=== PATIENT | female | born 1985 | race Caucasian/White ===

== ENCOUNTER 2021-09-14 07:59 | Outpatient (REF) | payer BC, SELFPAY ==
[2021-09-14 11:12] LABS: MANUAL DIFF FLAG NO
[2021-09-14 11:18] LABS: Appearance Urine CLEAR; Color Urine YELLOW; Glucose Urine UA NEG (NEG); Leukocyte Esterase Urine NEG (NEG); Nitrite Urine NEG (NEG); Specific Gravity - Urine 1.025 (1.005-1.025); UACC Culture Trigger NO; Urine Blood TRACE (NEG); Urine Ketones NEG (NEG); Urine Protein NEG (NEG-TRACE)
[2021-09-14 11:19] LABS: Basophils Percent Auto 0.4 % (0-2); Eosinophils Absolute Auto 0.2 X10*3/uL (0.0-0.4); Eosinophils Percent Auto 1.7 % (0-4); Hematocrit 38.6 % (37.0-47.0); Imm Gran Abs Auto 0.03 X10*3/uL (0.00-0.03); Imm Gran Pct Auto 0.3 % (0.0-0.4); Lymphocytes Absolute Auto 2.4 X10*3/uL (1.2-4.9); Lymphocytes Percent Auto 25.5 % (20-40); Mean Corpuscular HGB Conc 31.1 g/dl (31.0-35.0); Mean Corpuscular Hemoglobin 26.3 pg (27.0-33.0); Mean Corpuscular Volume 84.6 fL (80.0-98.0); Mean Platelet Volume 11.5 fL (9.4-12.3); Monocytes Absolute Auto 0.6 X10*3/uL (0.1-1.2); Monocytes Percent Auto 6.8 % (2-11); Neutrophils Absolute Auto 6.1 x10*3/uL (2.0-8.3); Neutrophils Percent Auto 65.3 % (45-73); Platelet Count 266 X10*3/uL (160-400); Red Blood Count 4.56 X10*6/uL (4.20-5.50); White Blood Count 9.4 X10*3/uL (4.8-10.8)
[2021-09-14 11:49] LABS: Bacteria Urine 1+ /LPF; RBC Urine 0-2 /HPF (0); Squamous Epithelial Cell Urine TRACE /LPF; WBC Urine 0 /HPF (0-4)
[2021-09-14 11:50] LABS: Alanine Aminotransferase 14 U/L (0-31); Albumin Level 3.9 g/dL (3.5-5.0); Alkaline Phosphatase 83 U/L (39-117); Anion Gap 12 (12-20); Aspartate Amino Transferase 13 U/L (5-31); Bilirubin Total 0.3 mg/dL (0.0-1.0); Blood Urea Nitrogen 11 mg/dL (9-16); Calcium 8.8 mg/dL (8.4-10.2); Carbon Dioxide 22 mmol/L (22-29); Chloride 106 mmol/L (96-108); Cholesterol 198 mg/dL; Estimated Glomerular Filt Rate > 60; Glucose Fasting 134 mg/dL (60-99); HDL Cholesterol 54 mg/dL; LDL Cholesterol Calculated 116 mg/dl; Sodium 136 mmol/L (135-145); Triglycerides 141 mg/dL
[2021-09-14 11:53] LABS: TSH reflex Free T4 1.21 uIU/mL (0.32-4.0)
== END 2021-09-14 08:00 | disposition home or self-care (01) ==
LOC: HO.HMGCLDS 07:59
PROVIDERS: Visit Provider Nurse Practitioner Family
DX: Z00.00 Encounter for general adult medical examination without abnormal findings (principal)
CPT/HCPCS: 36415; 80053; 80061; 81001; 84443; 85025

== ENCOUNTER 2021-10-02 07:58 | Outpatient (REF) | payer BC, SELFPAY ==
[2021-10-02 11:21] LABS: Urine Cytology See Pathology rpt
[2021-10-02 11:30] LABS: Appearance Urine CLEAR; Color Urine YELLOW; Glucose Urine UA NEG (NEG); Leukocyte Esterase Urine NEG (NEG); Nitrite Urine NEG (NEG); Specific Gravity - Urine 1.025 (1.005-1.025); Urine Blood NEG (NEG); Urine Ketones NEG (NEG); Urine Protein NEG (NEG-TRACE)
[2021-10-02 12:04] LABS: Glucose Fasting 123 mg/dL (60-99)
[2021-10-02 12:06] LABS: Bacteria Urine TRACE /LPF; RBC Urine 0-2 /HPF (0); Squamous Epithelial Cell Urine TRACE /LPF
[2021-10-02 12:07] LABS: WBC Urine 0 /HPF (0-4)
[2021-10-02 12:11] LABS: Estimated Average Glucose 126 mg/dL; Hemoglobin A1C 137.3714 umol/L
== END 2021-10-02 07:59 | disposition home or self-care (01) ==
LOC: HO.HMGCLDS 07:58
PROVIDERS: PCP Nurse Practitioner Family; Visit Provider Nurse Practitioner Family
DX: R73.01 Impaired fasting glucose (principal); R31.29 Other microscopic hematuria
CPT/HCPCS: 36415; 81001; 82947; 83036; 87086; 88112

== ENCOUNTER 2022-08-11 07:52 | Outpatient (REF) | payer BC, OTHER, SELFPAY ==
[2022-08-11 11:23] LABS: MANUAL DIFF FLAG NO
[2022-08-11 11:31] LABS: Appearance Urine Turbid; Color Urine Yellow; Glucose Urine UA Negative (Negative); Leukocyte Esterase Urine Negative (Negative); Nitrite Urine Negative (Negative); PH 5.5 (5.0-9.0); Specific Gravity - Urine 1.025 (1.005-1.025); Urine Blood Negative (Negative); Urine Ketones Negative (Negative); Urine Protein Negative (Neg-Trace)
[2022-08-11 11:36] LABS: Basophils Absolute Auto 0.1 X10*3/uL (0.0-0.2); Basophils Percent Auto 0.9 % (0-2); Eosinophils Absolute Auto 0.4 X10*3/uL (0.0-0.4); Eosinophils Percent Auto 4.3 % (0-4); Hemoglobin 12.3 g/dl (12.0-16.0); Imm Gran Abs Auto 0.02 X10*3/uL (0.00-0.03); Imm Gran Pct Auto 0.2 % (0.0-0.4); Lymphocytes Absolute Auto 1.8 X10*3/uL (1.2-4.9); Lymphocytes Percent Auto 21.5 % (20-40); Mean Corpuscular HGB Conc 31.5 g/dl (31.0-35.0); Mean Corpuscular Hemoglobin 26.6 pg (27.0-33.0); Mean Corpuscular Volume 84.2 fL (80.0-98.0); Mean Platelet Volume 11.1 fL (9.4-12.3); Monocytes Absolute Auto 0.7 X10*3/uL (0.1-1.2); Monocytes Percent Auto 8.5 % (2-11); Neutrophils Absolute Auto 5.3 x10*3/uL (2.0-8.3); Neutrophils Percent Auto 64.6 % (45-73); Platelet Count 270 X10*3/uL (160-400); Red Blood Count 4.63 X10*6/uL (4.20-5.50); Red Cell Distribution Width 13.2 % (11.0-16.0); White Blood Count 8.2 X10*3/uL (4.8-10.8)
[2022-08-11 12:13] LABS: Erythrocyte Sedimentation Rate 23 MM/HR (0-20)
[2022-08-11 12:25] LABS: Alanine Aminotransferase 9 U/L (0-31); Albumin Level 3.8 g/dL (3.5-5.0); Alkaline Phosphatase 89 U/L (39-117); Anion Gap 14 (12-20); Aspartate Amino Transferase 9 U/L (5-31); Bilirubin Total 0.6 mg/dL (0.0-1.0); Blood Urea Nitrogen 11 mg/dL (9-16); C Reactive Protein 1.23 mg/dL (< or = 0.50); Calcium 8.5 mg/dL (8.4-10.2); Carbon Dioxide 21 mmol/L (22-29); Chloride 107 mmol/L (96-108); Estimated Glomerular Filt Rate > 60; Glucose Random 146 mg/dL (60-115); Iron 73 mcg/dL (30-160); Percent Iron Saturation 24 % (15-50); Rheumatoid Factor < 13.0 IU/mL (<15.0); Sodium 138 mmol/L (135-145); Total Iron Binding Capacity 310 mcg/dL (228-428); Total Protein 6.5 g/dL (6.5-8.0); Unsaturated Iron Binding 237 ug/dL
[2022-08-11 12:29] LABS: Ferritin 114 ng/mL (10-122); Folate 12.6 ng/mL (> or = 4.0); TSH reflex Free T4 1.63 uIU/mL (0.32-4.0); Vitamin B12 494 pg/mL (200-900)
[2022-08-13 13:38] LABS: Antibody to SS-A Antigen <1.0 NEG AI (<1.0 NEG); Antibody to SS-B Antigen <1.0 NEG AI (<1.0 NEG)
[2022-08-13 15:42] LABS: Cyclic Citrullinated Peptide <16 UNITS
[2022-08-13 22:57] LABS: A. Phagocytphilium DNA,RT-PCR NOT DETECTED (NOT DETECTED); Babesia Microti DNA, RT-PCR NOT DETECTED (NOT DETECTED); Borrelia Miyamotoi,DNA RT-PCR NOT DETECTED (NOT DETECTED); E.Chaffeensis DNA RT-PCR NOT DETECTED (NOT DETECTED); Lyme(Borrelia ssp)DNA RT-PCR NOT DETECTED (NOT DETECTED)
[2022-08-14 12:28] LABS: Anti Nuclear Antibody Screen NEGATIVE (NEGATIVE)
[2022-08-19 14:33] LABS: DNAds, Crithidia Antibody Negative (Negative)
== END 2022-08-11 07:53 | disposition home or self-care (01) ==
LOC: HO.HMGCLDS 07:52
PROVIDERS: PCP Nurse Practitioner Family; Visit Provider Nurse Practitioner Family
DX: M25.50 Pain in unspecified joint (principal); R53.83 Other fatigue
CPT/HCPCS: 36415; 80053; 81003; 82550; 82607; 82728; 82746; 83540; 84443; 85025; 85652; 86038; 86039; 86140; 86200; 86235; 86255; 86431; 87798; 87801

== ENCOUNTER 2022-11-30 09:09 | Outpatient (AMB) | payer BC, SELFPAY ==
--- NOTE | 2022-11-30 09:11 | A.OFFVIS_ITS ---
Intake Vital Signs 11/30/22 09:12 Height 5 ft 3 in Weight 216 lb 11.43 oz BMI 38.4 BP 116/74 Blood Pressure Location Lt brachial Position Sitting Pulse 75 Pulse Source Pulse Oximeter Temp 97.5 F Temp Source Skin Pulse Oximetry (%) 98 Intake Visit Reasons: ELEV CRP/Elev sedrate Intake Note: * New pt presents today for consult. * C/o pain in whole body mostly in the AM; most painful are her feet, right is worse. * Pain has been on going since the beginning of year. 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 She gives a history of having some intermittent muscle aches for a number of years. Since the beginning of this year the pains have been worse in both the hands and the feet. The hands seem to hurt across the MCP regions and the pain is associated with some paresthesias in the fingertips. She had this problem with numbness in the past. She said she has had nerve testing done and was thought to have carpal tunnel syndrome. She does have some wrist splints at home but only occasionally uses them. She gets heel pain and instep pain with walking. This is worse on the right foot currently. She also dropped a heavy weight on her right instep yesterday so it is extra sore. She has not seen any swelling in the fingers. There is some cramping in the hands. She has the occasional numbness in the feet with prolonged sitting. She works at home so is at a computer most of the day. She does take some ibuprofen and or acetaminophen occasionally, perhaps once or twice a week with some benefit. Workup did not show autoantibodies but did show elevated inflammatory markers back in July. I am unable to locate the nerve conduction study that she said was done at [facility] perhaps 5 years ago. [facility] Medical History (Updated 11/30/22 @ 10:22 by Theo Chung MD) Arthralgia Elevated C-reactive protein (CRP) Elevated sed rate Generalized body aches Surgical History (Updated 11/30/22 @ 09:19 by ROSALINA Currie) Hx of cholecystectomy Family History (Updated 11/30/22 @ 09:18 by ROSALINA Currie) Mother Arthritis Diabetes Vascular abnormality Social History (Updated 11/30/22 @ 09:19 by ROSALINA Currie) Housing: Apartment Alcohol intake: current Alcohol intake frequency: holidays/special occasions only Patient Tobacco Use Status: Never used Tobacco e-Cigarette/Vaping Use: Never Used service: No Current occupational status: employed Cognitive needs: No Hearing needs: No Vision needs: No Female Reproductive History Menstrual Number of Living Children: 2 Review of Systems Const Details: Negative for appetite change, weight change, fever, chills, malaise and fatigue Eyes Details: Negative for vision change, dry eyes,headaches and dizziness ENT Details: Negative for hearing change, tinnitus, oral ulcer, nose bleeds and oral dryness. Card Details: Negative chest pain, edema and syncope Resp Details: Negative for SOB, cough and wheezing GI Details: Occasional heartburn. Negative the nausea, abdominal pain, bowel changes, diarrhea, constipation and bloody stool. Details: Two pregnancies without complications other than gestational diabetes. No miscarriages Negative for dysuria, hematuria, nocturia, decreased force/flow and genital discharge Skin/Breast Details: Negative for itching, rash, hives, Raynaud's symptoms, sun sensitivity, and skin cancer Neuro Details: Regular hand paresthesias and occasional foot paresthesias. Was told she had carpal tunnel syndrome in the past. Negative for epilepsy, palsy, stroke, changes in speech and weakness Psych Details: History of some anxiety. Apparently helped with bupropion. Negative for, depression and stress Endo Details: Negative for polyuria and polydypsia Simón/Lymph Details: Negative for excessive bruising or bleeding. Physical Exam Vital Signs: Last Vital Signs Temp 97.5 F 11/30/22 09:12 Pulse 75 11/30/22 09:12 BP 116/74 11/30/22 09:12 Pulse Ox 98 11/30/22 09:12 BMI result Body Mass Index 38.4 APPEARANCE: Patient in no acute distress EYES no redness, pupils equal and reactive to light, eyelids normal EARS: External ear normal, canal clear and tympanic membrane normal. NOSE/SINUS: Airflow through both nares, no nasal discharge, no bleeding THROAT: Oral mucosa moist, no ulcerations NECK: No thyromegaly or masses, no adenopathy, trachea midline. HEART: Regulrar rhythm, S1-S2 heard, no murmurs, rubs or gallops. LUNG: Clear to percussion and auscultation ABD: Normal bowel sounds, no organomegaly, masses or tenderness. EXTREMITIES: No edema, no calf tenderness, normal peripheral pulses. NEURO: Oriented and alert x3. No focal weakness. Reflexes symmetric. Gait normal. SKIN: No inflammatory or neoplastic lesions. Normal color and turgor JOINT EXAM:.?? Cervical Spine:.? Full range of motion without pain; no tenderness. Thoracic Spine:.? No scoliosis.? No tenderness on palpation. Lumbar Spine:.? Alignment normal.? Full range of motion without pain, no tenderness. Chest Wall:.? No tenderness, swelling, increased warmth or erythema. Hands: e Right:? Normal pain-free range of motion. There is some minimal tenderness at the PIP joints but no swelling is noted. Other joints have no swelling or tenderness. No flexor tendon triggering, thenar atrophy or sensory loss. Left: Mild tenderness of the 1st MCP and the 4th and 5th flexor tendon but no triggering is apparent. No other areas of tenderness or swelling. No thenar atrophy or sensory loss. Wrists:.? Normal pain-free range of motion without tenderness, swelling, increased warmth or erythema. Positive Phalen's test bilaterally. Negative Tinel sign. Elbows:. Normal pain-free range of motion with mild lateral epicondylar tenderness. No tenderness or swelling over the joint space. Shoulders:.?? Full range of motion with mild discomfort at the extremes of normal range of motion. There is mild anterior and subacromial tenderness without adenopathy, weakness, swelling, increased warmth or erythema. Hips:.? Full range of motion without pain. Hip bursa: Mild trochanteric tenderness. Knees:.?? Normal pain-free range of motion without tenderness, swelling, increased warmth or erythema.? There is no effusion or crepitation Ankles:.? Normal pain-free range of motion without tenderness, swelling, increased warmth or erythema. Feet: The right: There is a bruise over the distal instep. It is mildly tender but no induration is noted. There is mild tenderness along the medial heel region but no swelling or tenderness in the MTP joints or the toes. Left: Slight tenderness on the medial heel and the instep no swelling. Other joints have normal pain-free range of motion without tenderness, swelling, increased warmth or erythema. Tender points:.? Mild tenderness to digital palpation at the occiput, trapezius, second rib, lateral epicondyle, knees, greater trochanter area bilaterally. ? Results Reviewed Results Reviewed: Laboratory Tests 08/11/22 08/11/22 08/11/22 08:00 08:00 08:00 WBC 8.2 Hgb 12.3 ESR 23 H Creatinine 0.77 % Saturation 24 AST 9 ALT 9 C-Reactive Protein 1.23 H Laboratory Tests 08/11/22 08/11/22 08/11/22 08:00 08:00 08:00 Rheumatoid Factor < 13.0 Cycl Citrul Peptide IgG <16 FLORES Screen NEGATIVE Anti-ds DNA (Crithidia) Borrelia sp DNA (PCR) 08/11/22 08/11/22 08:00 08:00 Rheumatoid Factor Cycl Citrul Peptide IgG FLORES Screen Anti-ds DNA (Crithidia) Negative Borrelia sp DNA (PCR) NOT DETECTED Assessment & Plan Assessment & Plan (1) Elevated sed rate: Code(s): R70.0 - Elevated erythrocyte sedimentation rate (2) Elevated C-reactive protein (CRP): Code(s): R79.82 - Elevated C-reactive protein (CRP) (3) Bilateral hand pain: Code(s): M79.641 - Pain in right hand; M79.642 - Pain in left hand (4) Foot pain, bilateral: Code(s): M79.671 - Pain in right foot; M79.672 - Pain in left foot (5) Carpal tunnel syndrome, bilateral: Code(s): G56.03 - Carpal tunnel syndrome, bilateral upper limbs Plan The patient had mild elevation of an acute phase reactants back in July. There is some morning stiffness raising the question of inflammatory arthritis. Serologies were negative for RA and lupus. She does have hand paresthesias and in the past was told she had carpal tunnel syndrome. I suspect that that is causing most of her hand symptoms presently. She has bilateral heel tenderness consistent with plantar fasciitis. There is a bruise on her right foot that is tender today. She also has many tender points indicating some element of fibromyalgia. I think she can continue with occasional use of acetaminophen or Advil as she is doing. We would recheck her acute phase reactants and foot films. We will decide on follow-up on those come back. Most likely would be a few months follow-up to see if anything is involving in the direction of inflammatory disease. Overall her symptoms seem relatively mild in that she only takes occasional medication for it. Orders: Orders C Reactive Protein Today M79.641 - Pain in right hand, M79.642 - Pain in left hand, R79.82 - Elevated C-reactive protein (CRP) Erythrocyte Sedimentation Rate Today M79.641 - Pain in right hand, M79.642 - Pain in left hand, R79.82 - Elevated C-reactive protein (CRP) XR foot LT min 3V Today M79.671 - Pain in right foot, M79.672 - Pain in left foot XR foot RT min 3V Today M79.671 - Pain in right foot, M79.672 - Pain in left foot Coding Level of Care Code New Pt Level 3 (91658) Diagnoses Elevated sed rate R70.0 Elevated C-reactive protein (CRP) R79.82 Bilateral hand pain M79.641; M79.642 Foot pain, bilateral M79.671; M79.672 Carpal tunnel syndrome, bilateral G56.03
[2022-11-30 09:12] VITALS: BP 116/74; PULSE 75; TEMP 36.4; O2SAT 98; BMI 38.4
== END 2022-11-30 10:09 | disposition home or self-care (01) ==
PROVIDERS: PCP Nurse Practitioner Family; Visit Provider Internal Medicine Rheumatology
DX: R70.0 Elevated erythrocyte sedimentation rate (principal); R79.82 Elevated C-reactive protein (CRP); M79.641 Pain in right hand; M79.642 Pain in left hand; M79.671 Pain in right foot; M79.672 Pain in left foot; G56.03 Carpal tunnel syndrome, bilateral upper limbs
CPT/HCPCS: 99203

== ENCOUNTER → 2022-11-30 09:09 | Outpatient (BNVA) | payer SELFPAY | PROVIDERS: PCP Nurse Practitioner Family; Visit Provider Internal Medicine Rheumatology ==

== ENCOUNTER 2022-12-01 08:50 | Outpatient (AMB) | payer BC, SELFPAY ==
--- NOTE | 2022-12-01 08:52 | A.OFFPC_ITS ---
Vital Signs 12/01/22 08:53 Height 5 ft 3 in Weight 218 lb 4 oz BMI 38.7 BP 110/68 Blood Pressure Location Rt brachial Position Sitting Pulse 85 Pulse Source Pulse Oximeter Pulse Oximetry (%) 98 Oxygen Delivery Method Room Air Intake Visit Reasons: 3m follow up Allergies No Known Allergies Allergy (Verified 12/01/22 08:55) Tobacco use date assessed: 12/01/22 Dental Screening Dental Screen Date: 12/01/22 Did you have a dental visit in the last 12 months?: No Did you have a dental problem in the last 6 months where you did not have access to dental care?: No Was dental information given to patient?: Patient has dentist HPI 3m follow up HPI Details elevated FBS. pt will have labs today, assessing FBS mainly (? diabeties vs pre-diabetic). 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 Pt did report having gestational diabetes x 2 children. [facility] Medical History Arthralgia Elevated C-reactive protein (CRP) Elevated sed rate Generalized body aches Surgical History Hx of cholecystectomy Family History Mother Arthritis Diabetes Vascular abnormality Social History (Updated 11/30/22 @ 09:19 by Lanette Pedersen [facility]) Housing: Apartment Alcohol intake: current Alcohol intake frequency: holidays/special occasions only Patient Tobacco Use Status: Never used Tobacco e-Cigarette/Vaping Use: Never Used service: No Current occupational status: employed Cognitive needs: No Hearing needs: No Vision needs: No Questionnaire Thrive Questionnaire Date Thrive assessed: 09/08/21 MARCO A-7 AMB Questionnaire MARCO A-7 Date MARCO A - 7 assessed: 09/08/21 Source: Developed by Drs. Vishal Cason, Maureen Kwon, Isreal Bruce and colleagues, with an educational kristine from [employer]. Physical exam (Primary Care) Vital Signs: Last Vital Signs Pulse 85 12/01/22 08:53 BP 110/68 12/01/22 08:53 Pulse Ox 98 12/01/22 08:53 Oxygen Delivery Method Room Air 12/01/22 08:53 BMI result Body Mass Index 38.7 Tobacco/Smoking Status: Tobacco use Status Tobacco use date assessed 12/01/22 12/01/22 08:58 Patient Tobacco Use Status Never used Tobacco 12/01/22 08:53 e-Cigarette/Vaping Use Never Used 12/01/22 08:53 Thrive Assessment: Date of Thrive Assessment Date Thrive assessed 09/08/21 12/01/22 08:53 Const General: cooperative Nutritional Appearance: obese Resp Effort & Inspection: normal respiratory effort Auscultation: clear to auscultation bilaterally Cardio Rate: regular rate Rhythm: regular rhythm Heart sounds: S1 normal heart sound present, S2 normal heart sound present and no murmurs Neuro Motor exam (neuro): 5/5 motor strength present throughout Psych Appearance: grossly normal Mental Status: mental status grossly normal Speech and movement: Normal speech and movement present Affect: normal affect Thought process: Normal thought process present Thought content: Normal thought content present Insight: Good insight present (Psych) Assessment and Plan Assessment & Plan (1) Elevated fasting blood sugar: Code(s): R73.01 - Impaired fasting glucose Orders: Orders Comprehensive [place]. Panel Fast Today R73.01 - Impaired fasting glucose Lipid Panel Today R73.01 - Impaired fasting glucose TSH reflex Free T4 Today R73.01 - Impaired fasting glucose Complete Blood Count Auto Diff Today R73.01 - Impaired fasting glucose UA CC w/rflx Micro + Cult Today R73.01 - Impaired fasting glucose Microalbumin, Random (w Creat) Today R73.01 - Impaired fasting glucose Coding Level of Care Code Est Pt Level 3 (47797) Diagnoses Elevated fasting blood sugar R73.01
[2022-12-01 08:53] VITALS: BP 110/68; PULSE 85; O2SAT 98; BMI 38.7
== END 2022-12-01 11:07 | disposition home or self-care (01) ==
PROVIDERS: PCP Nurse Practitioner Family; Visit Provider Nurse Practitioner Family
DX: R73.01 Impaired fasting glucose (principal)
CPT/HCPCS: 99213

== ENCOUNTER 2022-12-01 09:18 | Outpatient (REF) | payer BC, SELFPAY ==
--- NOTE | ~2022-12-01 | XR_ITS ---
EXAMINATION: Bilateral foot. CLINICAL INDICATION: Pain in foot. COMPARISON: None. TECHNIQUE: 3 views each foot. FINDINGS: Bilateral foot There is mild hallux valgus deformity first MTP joint. No visible fracture, subluxation or bony erosive changes. The ankle mortise and subtalar joints are normal. There are small calcaneal heel enthesophyte XR/XR foot LT min 3V IMPRESSION: Small bilateral calcaneal heel enthesophyte. No visible acute fracture, dislocation or subluxation seen. No bony erosive changes. The soft tissues are normal.
--- NOTE | ~2022-12-01 | XR_ITS ---
EXAMINATION: Bilateral foot. CLINICAL INDICATION: Pain in foot. COMPARISON: None. TECHNIQUE: 3 views each foot. FINDINGS: Bilateral foot There is mild hallux valgus deformity first MTP joint. No visible fracture, subluxation or bony erosive changes. The ankle mortise and subtalar joints are normal. There are small calcaneal heel enthesophyte XR/XR foot RT min 3V IMPRESSION: Small bilateral calcaneal heel enthesophyte. No visible acute fracture, dislocation or subluxation seen. No bony erosive changes. The soft tissues are normal.
[2022-12-01 11:32] LABS: MANUAL DIFF FLAG NO
[2022-12-01 11:42] LABS: Basophils Absolute Auto 0.1 X10*3/uL (0.0-0.2); Basophils Percent Auto 0.8 % (0-2); Eosinophils Absolute Auto 0.1 X10*3/uL (0.0-0.4); Eosinophils Percent Auto 1.5 % (0-4); Hematocrit 39.3 % (37.0-47.0); Hemoglobin 12.3 g/dl (12.0-16.0); Imm Gran Abs Auto 0.08 X10*3/uL (0.00-0.03); Imm Gran Pct Auto 0.9 % (0.0-0.4); Lymphocytes Absolute Auto 2.1 X10*3/uL (1.2-4.9); Lymphocytes Percent Auto 23.9 % (20-40); Mean Corpuscular HGB Conc 31.3 g/dl (31.0-35.0); Mean Corpuscular Hemoglobin 26.9 pg (27.0-33.0); Mean Corpuscular Volume 85.8 fL (80.0-98.0); Mean Platelet Volume 11.2 fL (9.4-12.3); Monocytes Absolute Auto 0.5 X10*3/uL (0.1-1.2); Monocytes Percent Auto 5.8 % (2-11); Neutrophils Absolute Auto 5.9 x10*3/uL (2.0-8.3); Neutrophils Percent Auto 67.1 % (45-73); Platelet Count 277 X10*3/uL (160-400); Red Blood Count 4.58 X10*6/uL (4.20-5.50); Red Cell Distribution Width 12.6 % (11.0-16.0); White Blood Count 8.8 X10*3/uL (4.8-10.8)
[2022-12-01 11:59] LABS: Appearance Urine Clear; Color Urine Yellow; Glucose Urine UA Negative (Negative); Leukocyte Esterase Urine Negative (Negative); Nitrite Urine Negative (Negative); PH 6.5 (5.0-9.0); Urine Blood Negative (Negative); Urine Ketones Negative (Negative); Urine Protein Negative (Neg-Trace)
[2022-12-01 12:22] LABS: Erythrocyte Sedimentation Rate 18 MM/HR (0-20)
[2022-12-01 12:27] LABS: Creatinine Urine 126.96 mg/dL; Microalbum/Creatinine Ratio Ur 5.5 ug/mg cr
[2022-12-01 12:35] LABS: Alanine Aminotransferase 16 U/L (0-31); Albumin Level 3.8 g/dL (3.5-5.0); Alkaline Phosphatase 92 U/L (39-117); Anion Gap 13 (12-20); Aspartate Amino Transferase 34 U/L (5-31); Bilirubin Total 0.4 mg/dL (0.0-1.0); Blood Urea Nitrogen 9 mg/dL (9-16); Calcium 8.6 mg/dL (8.4-10.2); Carbon Dioxide 23 mmol/L (22-29); Chloride 107 mmol/L (96-108); Cholesterol 183 mg/dL; Estimated Glomerular Filt Rate > 60; Glucose Fasting 112 mg/dL (60-99); HDL Cholesterol 54 mg/dL; LDL Cholesterol Calculated 101 mg/dl; Potassium 3.7 mmol/L (3.3-5.1); Sodium 139 mmol/L (135-145); TSH reflex Free T4 1.33 uIU/mL (0.32-4.0); Total Protein 6.9 g/dL (6.5-8.0); Triglycerides 140 mg/dL
== END 2022-12-01 09:19 | disposition home or self-care (01) ==
LOC: HO.HMGCX 09:18
PROVIDERS: Absent Provider Internal Medicine Rheumatology; PCP Nurse Practitioner Family; Visit Provider Nurse Practitioner Family
DX: M79.641 Pain in right hand (principal); M79.642 Pain in left hand; M79.671 Pain in right foot; M79.672 Pain in left foot; R79.82 Elevated C-reactive protein (CRP); R73.01 Impaired fasting glucose; R73.03 Prediabetes; E66.9 Obesity, unspecified
CPT/HCPCS: 36415; 73630; 80053; 80061; 81003; 82043; 84443; 85025; 85652; 86140

== ENCOUNTER 2023-07-05 10:23 | Outpatient (AMB) | payer BC, SELFPAY ==
[2023-07-05 10:27] VITALS: BP 112/70; PULSE 83; O2SAT 96; BMI 37.9
--- NOTE | 2023-07-05 10:27 | A.OFFPC_ITS ---
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 Accompanied by: Self / Same As Patient Allergies No Known Allergies Allergy (Verified 07/05/23 10:28) Medication List - Last Reconciled 07/05/23 by JONNIE Ramos atorvastatin 10 mg PO BEDTIME lisinopril 2.5 mg PO DAILY semaglutide (Ozempic) 0.25 mg (0.368 mL) subcut QWEEK Tobacco use date assessed: 07/05/23 Dental Screening Dental Screen Date: 07/05/23 Did you have a dental visit in the last 12 months?: Yes Did you have a dental problem in the last 6 months where you did not have access to dental care?: No Was dental information given to patient?: Patient has dentist HPI 4 Month follow up HPI Details Pt is a newly-diagnosed diabetic. A1C in office today is 6.8. Microalbumin is up to date. Denies polyuria, polydipsia, and neuropathy. Pt denies any signs and symptoms of hypoglycemia and does know how to correct it. Will refer to nurse navigator for diabetes education. Will send meter and supplies. Will start ozempic 0.25mg. Will start low-dose lisinopril and atorvastatin. Pt knows to stop lisinopril if she develops dizziness. [facility] Medical History Elevated sed rate Elevated C-reactive protein (CRP) Arthralgia Generalized body aches Surgical History Hx of cholecystectomy Family History Mother Arthritis Diabetes Vascular abnormality Social History Housing: Apartment Alcohol intake: current Alcohol intake frequency: holidays/special occasions only Patient Tobacco Use Status: Never used Tobacco e-Cigarette/Vaping Use: Never Used service: No Current occupational status: employed Cognitive needs: No Hearing needs: No Vision needs: No Questionnaire PHQ-9 Over the last 2 weeks, how often have you been bothered by any of the following problems? 1. Little interest or pleasure in doing things: several days 2. Feeling down, depressed, or hopeless: several days 3. Trouble falling or staying asleep, or sleeping too much: more than half the days 4. Feeling tired or having little energy: nearly every day 5. Poor appetite or overeating: several days 6. Feeling bad about yourself - or that you are a failure or have let yourself or your family down: several days 7. Trouble concentrating on things, such as reading the newspaper or watching television: several days 8. Moving or speaking so slowly that other people could have noticed. Or the opposite - being so fidgety or restless that you have been moving around a lot more than usual: not at all 9. Thoughts that you would be better off or of hurting yourself in some way: not at all Total score: 10 Depression Screening Interpretation: Positive Depression Screening Done: Yes 20405 - PHQ-9 Billing: Yes Source: Developed by Drs. Vishal Cason, Maureen Kwon, Isreal Bruce and colleagues, with an educational kristine from [employer]. Thrive Questionnaire Date Thrive assessed: 07/05/23 I am a: Patient What is your living situation today?: I have a steady place to live Within the past 12 months, did the food you bought not last and you didn't have the money to get more?: Never true Within the past 12 months, did you worry whether your food would run out before you got money to buy more?: Never true Do you have trouble paying for medicines?: No Do you have trouble getting transportation to medical appointments?: No Do you have trouble paying your heating and electricity bill?: No Do you have trouble taking care of your child, family member or friend?: No Do you have trouble with day-to-day activities such as bathing, preparing meals, shopping, managing finances, etc.?: No Are you currently unemployed and looking for a job?: No Are you interested in more education?: No Please select the resources that you would like help with: None Currently or been in a relationship where the following occur: no concerns reported THRIVE Score: 0 AUDIT C Alcohol Use Questionnaire (AUDIT-C) 1. How often do you have a drink containing alcohol?: Monthly or less 2. How many drinks containing alcohol do you have on a typical day when you are drinking?: 1 or 2 3. How often do you have six or more drinks on one occasion?: Never Total Score: 1 Score Reviewed/Action Taken: Yes MARCO A-7 AMB Questionnaire MARCO A-7 Date MARCO A - 7 assessed: 07/05/23 Feeling nervous, anxious, or on edge: 1 = Several days Not being able to stop or control worryin = More than half the days Worrying too much about different things: 3 = Nearly every day Trouble relaxin = Nearly every day Being so restless that it is hard to sit still: 1 = Several days Becoming easily annoyed or irritable: 2 = More than half the days Feeling afraid as if something awful might happen: 0 = Not at all Total MARCO A-7 score (0-4 normal; 5-9 mild; 10-14 moderate; 15-21 severe): 12 Source: Developed by Drs. Vishal Cason, Maureen Kwon, Isreal Bruce and colleagues, with an educational kristine from [employer]. MARCO A-7 Assessment Billing MARCO A-7 Assessment Tool: MARCO A-7 Assessment 67966 Review of Systems Const Reports as per HPI Physical exam (Primary Care) Vital Signs: Last Vital Signs Pulse 83 07/05/23 10:27 BP 112/70 07/05/23 10:27 Pulse Ox 96 07/05/23 10:27 BMI result Body Mass Index 37.9 Tobacco/Smoking Status: Tobacco use Status Tobacco use date assessed 07/05/23 07/05/23 10:29 Patient Tobacco Use Status Never used Tobacco 07/05/23 10:29 e-Cigarette/Vaping Use Never Used 07/05/23 10:29 PHQ-9: PHQ-9 Score PHQ-9: Total score 10 07/05/23 10:58 Depression Screening Interpretation: Positive Thrive Assessment: Date of Thrive Assessment Date Thrive assessed 07/05/23 07/05/23 10:50 Currently or been in a relationship where the following occur: no concerns reported Const General: cooperative Nutritional Appearance: obese Orientation/consciousness: patient oriented x3 Resp Effort & Inspection: normal respiratory effort Auscultation: clear to auscultation bilaterally Cardio Rate: regular rate Rhythm: regular rhythm Heart sounds: S1 normal heart sound present and S2 normal heart sound present Neuro General: patient oriented x3 Extrem Other: bilat feet: + sensation with use of monofilament, feet intact Psych Appearance: grossly normal Mental Status: mental status grossly normal Speech and movement: Normal speech and movement present Affect: normal affect Attitude: cooperative Thought process: Normal thought process present Thought content: Normal thought content present Insight: Good insight present (Psych) Judgement: Good judgement present (Psych) Results AMB Hemoglobin A1c AMB Hemoglobin A1c 6.8 % Last Edit by Vinnie Benitez CMA on 07/05/23 10: 57 Results Reviewed Results Reviewed: Laboratory Last Values Hgb A1c (Clinic) 6.8 % (4.0-6.0) H 07/05/23 10:56 Assessment and Plan Assessment & Plan (1) Diabetes: Code(s): E11.9 - Type 2 diabetes mellitus without complications Plan: Labs ordered, referred to nurse navigator, starting ozempic, lisinopril, and atorvastatin, sending meter and supplies Plan The patient agreed to the use of a medical office coordinator for this encounter. Scribed for JONNIE Vicente by Heidy Salmeron medical office coordinator, on 07/05/2023 at 11:00 EST. Orders: Orders Complete Blood Count Auto Diff Today E11.9 - Type 2 diabetes mellitus without complications UA CC w/rflx Micro + Cult Today E11.9 - Type 2 diabetes mellitus without complications Microalbumin, Random (w Creat) Today E11.9 - Type 2 diabetes mellitus without complications AMB Hemoglobin A1c Today Z13.9 - Encounter for screening, unspecified Comprehensive [place]. Panel Fast Today E11.9 - Type 2 diabetes mellitus without complications TSH reflex Free T4 Today E11.9 - Type 2 diabetes mellitus without complications Lipid Panel Today E11.9 - Type 2 diabetes mellitus without complications Referrals Nurse Navigator Referral E11.9 - Type 2 diabetes mellitus without complications Medications: New semaglutide (Ozempic) for 4 weeks 0.25 mg (0.368 mL) subcut QWEEK 3 mL 0RF lisinopril 2.5 mg PO DAILY 90 tabs 0RF atorvastatin 10 mg PO BEDTIME 90 tabs 0RF Coding Level of Care Code Est Pt Level 3 (86680) Diagnoses Diabetes E11.9 Additional Codes MARCO A-7 Assessment Billing - MARCO A-7 Assessment Tool: MARCO A-7 Assessment 40683 ([id number])
== END 2023-07-05 11:18 | disposition home or self-care (01) ==
PROVIDERS: PCP Nurse Practitioner Family; Visit Provider Nurse Practitioner Family
DX: E11.9 Type 2 diabetes mellitus without complications (principal)
CPT/HCPCS: 83036; 99213

== ENCOUNTER 2023-10-21 08:41 | Outpatient (AMB) | payer BC, SELFPAY ==
[2023-10-21 09:19] VITALS: BP 118/74; PULSE 76; TEMP 36.7; O2SAT 97; BMI 36.5
--- NOTE | 2023-10-21 09:19 | AM.OFFWIN_ITS ---
Intake Vital Signs 10/21/23 09:19 Height 5 ft 3 in Weight 206 lb BMI 36.5 BP 118/74 Blood Pressure Location Lt brachial Position Sitting Pulse 76 Pulse Source Pulse Oximeter Temp 98.0 F Temp Source Oral Pulse Oximetry (%) 97 Intake Visit Reasons: EP Cyst (leaking) Intake Note: pt is here for cyst on right side abd Patient Tobacco Use Status: Never used Tobacco Allergies metformin Adverse Reaction (Intermediate, Uncoded 10/21/23 09:20) Dizziness Do you need a note to return to daycare/school/sports/work: Yes HPI HPI Comments History of Present Illness Details Patient is a 38-year-old female complaining of a boil on her right side of her abdomen. She states it started leaking in the shower [place] but she wants to make sure it is unaffected. She states it still is a little bit seen while even after it started leaking but she denies any fevers. She denies any history of cysts. [facility] Medical History Elevated sed rate Elevated C-reactive protein (CRP) Arthralgia Generalized body aches Surgical History Hx of cholecystectomy Family History Mother Arthritis Diabetes Vascular abnormality Social History Housing: Apartment Alcohol intake: current Alcohol intake frequency: holidays/special occasions only Patient Tobacco Use Status: Never used Tobacco e-Cigarette/Vaping Use: Never Used service: No Current occupational status: employed Cognitive needs: No Hearing needs: No Vision needs: No Review of Systems Const All systems reviewed & are unremarkable except as noted in HPI and below Physical Exam Vital Signs: Last Vital Signs Temp 98.0 F 10/21/23 09:19 Pulse 76 10/21/23 09:19 BP 118/74 10/21/23 09:19 Pulse Ox 97 10/21/23 09:19 BMI result Body Mass Index 36.5 Const General: cooperative, healthy appearing, comfortable, no acute distress and well developed Orientation/consciousness: patient oriented x3 Limitations: no limitations Eyes General: appearance normal, both eyes and all related structures Resp Effort & Inspection: normal respiratory effort and able to speak in complete sentences Skin Other: Right-sided abdomen, 0.5 cm area of slight erythema and smaller area open skin, no warmth, no further drainage noted, no induration, no ecchymosis. Neuro General: patient oriented x3 Assessment & Plan Assessment & Plan (1) Boil: Code(s): L02.92 - Furuncle, unspecified Plan: It appears this has completely drained, does not look infected, advised to apply Aquaphor twice daily and clean with soap and water. Plan See above Coding Level of Care Code Est Pt Level 2 (05909) Diagnoses Boil L02.92
== END 2023-10-21 09:46 | disposition home or self-care (01) ==
PROVIDERS: PCP Nurse Practitioner Family; Visit Provider Physician Assistant
DX: L02.92 Furuncle, unspecified (principal)
CPT/HCPCS: 99212

== ENCOUNTER 2023-12-31 09:53 | Outpatient (REF) | payer BC, SELFPAY ==
[2023-12-31 10:57] LABS: MANUAL DIFF FLAG NO
[2023-12-31 11:07] LABS: Basophils Percent Auto 0.5 % (0-2); Eosinophils Absolute Auto 0.1 X10*3/uL (0.0-0.4); Eosinophils Percent Auto 1.5 % (0-4); Hematocrit 39.7 % (37.0-47.0); Hemoglobin 12.8 g/dl (12.0-16.0); Imm Gran Abs Auto 0.02 X10*3/uL (0.00-0.03); Imm Gran Pct Auto 0.2 % (0.0-0.4); Lymphocytes Absolute Auto 2.1 X10*3/uL (1.2-4.9); Lymphocytes Percent Auto 23.5 % (20-40); Mean Corpuscular HGB Conc 32.2 g/dl (31.0-35.0); Mean Corpuscular Hemoglobin 27.1 pg (27.0-33.0); Mean Corpuscular Volume 83.9 fL (80.0-98.0); Mean Platelet Volume 10.6 fL (9.4-12.3); Monocytes Absolute Auto 0.6 X10*3/uL (0.1-1.2); Monocytes Percent Auto 7.2 % (2-11); Neutrophils Absolute Auto 5.9 x10*3/uL (2.0-8.3); Neutrophils Percent Auto 67.1 % (45-73); Platelet Count 303 X10*3/uL (160-400); Red Blood Count 4.73 X10*6/uL (4.20-5.50); Red Cell Distribution Width 12.5 % (11.0-16.0); White Blood Count 8.7 X10*3/uL (4.8-10.8)
[2023-12-31 11:35] LABS: Estimated Average Glucose 120 mg/dL; Hemoglobin A1c % 5.8 % (<6.0)
[2023-12-31 11:51] LABS: Alanine Aminotransferase 18 U/L (0-31); Alkaline Phosphatase 82 U/L (39-117); Anion Gap 12 (12-20); Aspartate Amino Transferase 17 U/L (5-31); Bilirubin Total 0.6 mg/dL (0.0-1.0); Blood Urea Nitrogen 10 mg/dL (9-16); Calcium 9.3 mg/dL (8.4-10.2); Carbon Dioxide 26 mmol/L (22-29); Chloride 104 mmol/L (96-108); Cholesterol 173 mg/dL (<200); Estimated Glomerular Filt Rate > 60; Glucose Fasting 113 mg/dL (60-99); HDL Cholesterol 45 mg/dL (>40); LDL Cholesterol Calculated 93 mg/dL (<100); Potassium 4.2 mmol/L (3.3-5.1); Sodium 138 mmol/L (135-145); Total Protein 7.3 g/dL (6.5-8.0); Triglycerides 179 mg/dL (<150)
[2023-12-31 11:53] LABS: TSH reflex Free T4 0.94 uIU/mL (0.32-4.0)
== END 2023-12-31 09:54 | disposition home or self-care (01) ==
LOC: HO.HMGCLDS 09:53
PROVIDERS: PCP Nurse Practitioner Family; Visit Provider Nurse Practitioner Family
DX: E11.9 Type 2 diabetes mellitus without complications (principal)
CPT/HCPCS: 36415; 80053; 80061; 83036; 84443; 85025

== ENCOUNTER 2024-01-03 07:56 | Outpatient (AMB) | payer BC, SELFPAY ==
--- NOTE | 2024-01-03 07:19 | A.OFFPC_ITS ---
Intake Visit Reasons: monjaro/DM follow up Allergies metformin Adverse Reaction (Intermediate, Uncoded 10/21/23 09:20) Dizziness Medication List - Last Reconciled 01/03/24 by JONNIE Ramos atorvastatin 10 mg PO BEDTIME blood sugar diagnostic (OneTouch Verio test strips) test blood sugar once a day blood sugar diagnostic (Accu-Chek Guide test strips) Test blood sugar twice a day blood-glucose meter (OneTouch Verio Flex Meter) As directed blood-glucose meter (Accu-Chek Guide Glucose Meter) As directed lancets (OneTouch Delica Plus Lancet) Test blood sugar once a day lancets (Accu-Chek Softclix Lancets) Test blood sugar twice a day lisinopril 2.5 mg PO DAILY metformin ER 500 mg PO DAILY tirzepatide 5 mg (0.5 mL) subcut QWEEK Tobacco use date assessed: 07/05/23 Dental Screening Dental Screen Date: 07/05/23 HPI monjaro/DM follow up HPI Details Pt is a diabetic, on an USAMA and a statin. Last A1C was 5.8. Due for microalbumin. Denies polyuria, polydipsia, and neuropathy. Pt denies any signs and symptoms of hypoglycemia and does know how to correct it. Pt reports that her blood sugar has been ranging from 115-120 in the morning. Will increase mounjaro from 2.5mg to 5mg, doing well on medication. Pt reports that she weighed 212lbs in August and 196lbs this morning. [facility] Medical History Elevated sed rate Elevated C-reactive protein (CRP) Arthralgia Generalized body aches Surgical History Hx of cholecystectomy Family History Mother Arthritis Diabetes Vascular abnormality Social History Housing: Apartment Alcohol intake: current Alcohol intake frequency: holidays/special occasions only Patient Tobacco Use Status: Never used Tobacco e-Cigarette/Vaping Use: Never Used service: No Current occupational status: employed Cognitive needs: No Hearing needs: No Vision needs: No Questionnaire Thrive Questionnaire Date Thrive assessed: 07/05/23 MARCO A-7 AMB Questionnaire MARCO A-7 Date MARCO A - 7 assessed: 07/05/23 Source: Developed by Drs. Vishal Cason, Maureen Kwon, Isreal Bruce and colleagues, with an educational kristine from [email or web address]). Review of Systems Const Reports as per HPI Physical exam (Primary Care) Tobacco/Smoking Status: Tobacco use Status Tobacco use date assessed 07/05/23 01/03/24 07:20 Patient Tobacco Use Status Never used Tobacco 01/03/24 07:20 e-Cigarette/Vaping Use Never Used 01/03/24 07:20 Thrive Assessment: Date of Thrive Assessment Date Thrive assessed 07/05/23 01/03/24 07:20 Const General: cooperative Orientation/consciousness: patient oriented x3 Neuro General: patient oriented x3 Psych Appearance: grossly normal Mental Status: mental status grossly normal Speech and movement: Clear speech present Affect: normal affect Attitude: cooperative Thought process: Normal thought process present Thought content: Normal thought content present Insight: Good insight present (Psych) Judgement: Good judgement present (Psych) Telehealth Telehealth Telehealth Platform: Audio Network Location of provider rendering services: practice address Location of patient: address on file Patient Identification confirmed using: Name, : Yes Telehealth method: video Patient verbally consented to treatment: Yes Patient verbally consented to billing insurance company: Yes Patient informed of any privacy concerns related to visit: Yes Minutes spent on Phone/Video with Pt.: 10 Assessment and Plan Assessment & Plan (1) Diabetes: Code(s): E11.9 - Type 2 diabetes mellitus without complications Plan: increased mounjaro to 5mg, pt is doing quite well on medication Plan The patient agreed to the use of a medical technologist prn for this encounter. Scribed for JONNIE Vicente by Heidy Salmeron medical technologist prn, on 01/03/2024 at 07:15 EST. Medications: Changed From tirzepatide (Mounjaro) 2.5 mg (0.5 mL) subcut QWEEK 6 mL 1RF To tirzepatide 5 mg (0.5 mL) subcut QWEEK 2 mL 1RF Coding Level of Care Code Tele Est Pt Level 3 (55495) Diagnoses Diabetes E11.9
== END 2024-01-03 16:29 | disposition home or self-care (01) ==
LOC: HO.HMGC 07:56
PROVIDERS: PCP Nurse Practitioner Family; Visit Provider Nurse Practitioner Family
DX: E11.9 Type 2 diabetes mellitus without complications (principal)
CPT/HCPCS: 99213

== ENCOUNTER 2024-05-17 11:41 | Outpatient (AMB) | payer BC, SELFPAY ==
--- NOTE | 2024-05-17 11:43 | MHC.PC.OV ---
Vital Signs 05/17/24 11:44 Height 5 ft 3 in Weight 186 lb BMI 32.9 BP 122/80 Blood Pressure Location Rt brachial Position Sitting Pulse 90 Pulse Source Pulse Oximeter Temp 97.9 F Temp Source Oral Pulse Oximetry (%) 98 Oxygen Delivery Method Room Air Intake Visit Reasons: Med review Intake Note: pt is here for DM follow up Non Profit Financial Controller Required: No Accompanied by: Self / Same As Patient Allergies lisinopril Allergy (Mild, Verified 05/17/24 11:50) Weakness metformin Adverse Reaction (Intermediate, Uncoded 05/17/24 11:49) Dizziness Medication List - Last Reconciled 05/17/24 by Olayinka Cleary, ANIMAL PHYSIOLOGIST- atorvastatin 10 mg PO BEDTIME blood sugar diagnostic (OneTouch Verio test strips) test blood sugar once a day blood sugar diagnostic (Accu-Chek Guide test strips) Test blood sugar twice a day blood-glucose meter (OneTouch Verio Flex Meter) As directed blood-glucose meter (Accu-Chek Guide Glucose Meter) As directed lancets (OneTouch Delica Plus Lancet) Test blood sugar once a day lancets (Accu-Chek Softclix Lancets) Test blood sugar twice a day tirzepatide 5 mg (0.5 mL) subcut QWEEK Tobacco use date assessed: 05/17/24 Dental Screening Dental Screen Date: 05/17/24 Did you have a dental visit in the last 12 months?: Yes Did you have a dental problem in the last 6 months where you did not have access to dental care?: No Was dental information given to patient?: Patient has dentist HPI Med review HPI Details Chief Complaint The patient is experiencing intermittent dizziness when moving her head side to side. History of Present Illness The patient is a 39-year-old female presenting for a follow-up regarding her diabetes management and reporting dizziness. She has been managing her diabetes with Mounjaro, with satisfactory control indicated by an A1c of 5.4%. The patient denies any symptoms of polyuria, polydipsia, or peripheral neuropathy, which suggests stable glycemic control. She is proactive in managing her condition, planning to schedule an eye exam independently. Additionally, she has been losing weight and reports an overall feeling of well-being. However, she complains of occasional dizziness, primarily triggered by lateral head movements, persisting over several months. This dizziness does not seem to correlate with positional changes such as standing up. The issue has raised concerns about a potential vestibular disorder, and no previous interventions for this dizziness have been recorded. Social History - No specific social determinants discussed. Health Maintenance - Mounjaro medication for diabetes management with recent A1c of 5.4%. - Patient plans to schedule an eye exam for diabetic retinopathy screening. Review of Systems - Neurological: Reports dizziness when moving head side to side. - Cardiovascular: Denies chest pain, denies shortness of breath. - Psychiatric: Denies suicidal ideation, denies homicidal ideation. Physical Exam General: Cooperative, healthy appearing, comfortable, no acute distress and well developed Orientation: Patient oriented x3 Limitations: No limitations Head: Normal to inspection Ears: Hearing grossly normal bilaterally, TMs intact, no signs of effusion or infection Nose: Normal external nose present Face and sinus: Normal facial exam Eyes: Appearance normal, both eyes and all related structures Neck: Normal visual inspection and Yes full ROM Respiratory: Normal respiratory effort and able to speak in complete sentences. Clear to auscultation bilaterally Cardiovascular: Regular rate and rhythm. Normal S1 and S2 GI: Normal to inspection. Soft to palpation and nontender Skin: No rashes or lesions noted Neuro: Patient oriented x3, CN2-12 intact Extremities: Normal to inspection, feet intact bilaterally, positive sensation with use of monofilament to bilateral feet Results - Labs: A1c of 5.4% reported. Plan - Evaluate the patient's dizziness as possibly vestibular in nature. Refer the patient to physical therapy for vestibular rehabilitation. - Continue current diabetes management with Mounjaro given the excellent glycemic control demonstrated by the recent A1c. Patient was informed and verbally consented to the use of an ambient scribe for clinic note documentation during this visit. Discussion Notes I discussed with the patient that her dizziness could be related to a vestibular issue and recommended physical therapy to address this concern. We reviewed her diabetes management, affirming her good control as evidenced by an A1c of 5.4%. We discussed the importance of maintaining follow-up appointments and scheduling her own eye exam to manage the potential complications of diabetes. The patient was advised on the benefits and limitations of current treatment and agreed to the proposed plan. Patient Instructions - Continue taking Mounjaro as prescribed for diabetes management. - Schedule and attend an eye exam for retinal screening. - Follow through with referral to physical therapy for dizziness treatment. [facility] Medical History Elevated sed rate Elevated C-reactive protein (CRP) Arthralgia Generalized body aches Surgical History Hx of cholecystectomy Family History Mother Arthritis Diabetes Vascular abnormality Social History Housing: Apartment Alcohol intake: current Alcohol intake frequency: holidays/special occasions only Patient Tobacco Use Status: Never used Tobacco e-Cigarette/Vaping Use: Never Used service: No Current occupational status: employed Cognitive needs: No Hearing needs: No Vision needs: No Questionnaire PHQ-9 Over the last 2 weeks, how often have you been bothered by any of the following problems? 1. Little interest or pleasure in doing things: several days 2. Feeling down, depressed, or hopeless: not at all 3. Trouble falling or staying asleep, or sleeping too much: several days 4. Feeling tired or having little energy: nearly every day 5. Poor appetite or overeating: not at all 6. Feeling bad about yourself - or that you are a failure or have let yourself or your family down: not at all 7. Trouble concentrating on things, such as reading the newspaper or watching television: not at all 8. Moving or speaking so slowly that other people could have noticed. Or the opposite - being so fidgety or restless that you have been moving around a lot more than usual: not at all 9. Thoughts that you would be better off or of hurting yourself in some way: not at all Total score: 5 Depression Screening Interpretation: Negative Depression Screening Done: Yes 32845 - PHQ-9 Billing: Yes Source: Developed by Drs. Vishal Cason, Maureen Kwon, Isreal Bruce and colleagues, with an educational kristine from [employer]. Thrive Questionnaire Date Thrive assessed: 05/17/24 I am a: Patient What is your living situation today?: I have a steady place to live Within the past 12 months, did the food you bought not last and you didn't have the money to get more?: Never true Within the past 12 months, did you worry whether your food would run out before you got money to buy more?: Never true Do you have trouble paying for medicines?: No Do you have trouble getting transportation to medical appointments?: No Do you have trouble paying your heating and electricity bill?: No Do you have trouble taking care of your child, family member or friend?: No Do you have trouble with day-to-day activities such as bathing, preparing meals, shopping, managing finances, etc.?: No Are you currently unemployed and looking for a job?: No Are you interested in more education?: No Please select the resources that you would like help with: None Currently or been in a relationship where the following occur: No concerns reported THRIVE Score: 0 AUDIT C Alcohol Use Questionnaire (AUDIT-C) 1. How often do you have a drink containing alcohol?: Never 3. How often do you have six or more drinks on one occasion?: Never Total Score: 0 Score Reviewed/Action Taken: Yes MARCO A-7 AMB Questionnaire MARCO A-7 Date MARCO A - 7 assessed: 05/17/24 Feeling nervous, anxious, or on edge: 1 = Several days Not being able to stop or control worryin = Not at all Worrying too much about different things: 0 = Not at all Trouble relaxin = Several days Being so restless that it is hard to sit still: 0 = Not at all Becoming easily annoyed or irritable: 1 = Several days Feeling afraid as if something awful might happen: 0 = Not at all Total MARCO A-7 score (0-4 normal; 5-9 mild; 10-14 moderate; 15-21 severe): 3 Source: Developed by Drs. Vishal Cason, Maureen Kwon, Isreal Bruce and colleagues, with an educational kristine from [employer]. MARCO A-7 Assessment Billing MARCO A-7 Assessment Tool: MARCO A-7 Assessment 87941 Physical exam (Primary Care) Vital Signs: Last Vital Signs Temp 97.9 F 05/17/24 11:44 Pulse 90 05/17/24 11:44 BP 122/80 05/17/24 11:44 Pulse Ox 98 05/17/24 11:44 Oxygen Delivery Method Room Air 05/17/24 11:44 BMI result Body Mass Index 32.9 Tobacco/Smoking Status: Tobacco use Status Tobacco use date assessed 05/17/24 05/17/24 11:44 Patient Tobacco Use Status Never used Tobacco 05/17/24 11:44 e-Cigarette/Vaping Use Never Used 05/17/24 11:44 PHQ-9: PHQ-9 Score PHQ-9: Total score 5 05/17/24 13:31 Depression Screening Interpretation: Negative Thrive Assessment: Date of Thrive Assessment Date Thrive assessed 05/17/24 05/17/24 11:44 Currently or been in a relationship where the following occur: No concerns reported Office Procedures Flu Questionnaire Does the patient have a severe egg allergy?: No Does the patient have severe life threatening allergies?: No Does the patient have a fever or illness today?: No Has the patient ever had Guillain-Salida Syndrome?: No Has the patient ever had any past reaction to a flu shot?: No Immunizations Fluarix Triv [id number] (PF) 45 mcg (15 mcg x 3)/0.5 mL IM syringe Performing Provider: AFSHIN Ramos Performing Location: [facility] Administered by: Vinnie Benitez CMA on 05/17/24 13:31 Dose Route Admin Location Dispensed Lot Number Expiration Date [facility] Document Preparer Microfilming 0.5 mL IM Left Deltoid 0.5 mL [id number] 10/22/24 [id number] [employer] VIS Given Date VIS Provided VIS Publication Date 05/17/24 Single Vaccine 20 Eligibility Eligibility Date Funding Source Not [facility] Eligible 05/17/24 Private Coding Level of Care Code Est Pt Level 3 (63769) Diagnoses Diabetes E11.9 Vertigo R42 Additional Codes MARCO A-7 Assessment Billing - MARCO A-7 Assessment Tool: MARCO A-7 Assessment 42199 ([id number]) PHQ-9 - 67349 - PHQ-9 Billing: Yes ([id number]) Assessment & Plan Assessment & Plan (1) Diabetes: Code(s): E11.9 - Type 2 diabetes mellitus without complications Category: Medical (2) Vertigo: Code(s): R42 - Dizziness and giddiness Category: Medical Plan . Orders: Orders Comprehensive [place]. Panel Fast Today E11.9 - Type 2 diabetes mellitus without complications TSH reflex Free T4 Today E11.9 - Type 2 diabetes mellitus without complications UA CC w/rflx Micro + Cult Today E11.9 - Type 2 diabetes mellitus without complications Microalbumin, Random (w Creat) Today E11.9 - Type 2 diabetes mellitus without complications Influenza [id number] Immunization Today Z23 - Encounter for immunization Complete Blood Count Auto Diff Today E11.9 - Type 2 diabetes mellitus without complications Lipid Panel Today E11.9 - Type 2 diabetes mellitus without complications MM screening mammo BI Today Z12.31 - Encounter for screening mammogram for malignant neoplasm of breast
[2024-05-17 11:44] VITALS: BP 122/80; PULSE 90; TEMP 36.6; O2SAT 98; BMI 32.9
--- OUTSIDE RECORDS SUMMARY | 2024-05-17 14:10 | XMS_ITS | Clinical Summary ---
Author Organization [facility] Address [address] [place] [phone] Phone Care Team Providers Care Feller Operator Name Role Phone Unavailable Primary Care Provider Unavailabl e Immunizations Name Administration Dates Next Due DTP 01/06/1989, 6,1984,08/29/18 85,1984 Hep B, ped/adol 11/19/1999,01/15/1998,09/25/1997 Hib (HbOC) 05/14/1986 MMR 03/01/1995,07/16/1985 OPV 01/06/1989, 6,1984,08/29/18 85,1984 Td (adult) (Tenivac), 5 Lf t etanus toxoid, PF, adsorbed 09/25/1997 Social History Tobacco Use Types Packs/Day Years Used Date Smoking Tobacco: Never Assessed Comments Unknown Sex and Gender Information Value Date Recorded Sex Assigned at Not on file Legal Sex Female 4:32 PM EDT Gender Identity Not on file Sexual Orientation Not on file Plan of Treatment Health Maintenance Due Date Last Done Comments Varicella Vaccines (1 of 2 - 13+ 2-dose series) 1997 DTaP,Tdap,and Td Vaccines (6 - Tdap) 09/26/1997 09/25/1997, 01/06/1989, 11/26/1985, Additional history exists Influenza Vaccines (#1) 2023 COVID-19 Vaccine ( season) 2023 HIB Vaccines Completed 05/14/1986 IPV Vaccines Completed 01/06/1989, 07/1985, 1984, Additional history exists MMR Vaccines Completed 03/01/1995, 07/16/1985 Hepatitis B Vaccines Completed 11/19/1999, 01/15/1998, 09/25/1997 HPV Vaccines Aged Out No longer eligi ble based on patient's age to complete this topic Hepatitis A Vaccines Aged Out No long er eligible based on patient's age to complete this topic Men B Vaccine Aged Out No longer elig ible based on patient's age to complete this topic Meningococcal Vaccine Aged Out No kan louise eligible based on patient's age to complete this topic Pneumococcal Vaccine Aged Out No long er eligible based on patient's age to complete this topic
--- OUTSIDE RECORDS SUMMARY | 2024-05-17 14:10 | XMS_ITS | Encounter Summary ---
Author Organization [facility] Address [address] [place] [phone] Phone Care Team Providers Care Aerial Gunner Superintendent Name Role Phone Shasta Holder MD Primary Care Provider [phone] Encounter Details Date Type Department Care Team (Late st Contact Info) Description 12/09/2016 Conversion Encounter [facility] [address] [address] Social History Tobacco Use Types Packs/Day Years Used Date Smoking Tobacco: Never Assessed Comments Unknown Sex and Gender Information Value Date Recorded Sex Assigned at Not on file Legal Sex Female 4:32 PM EDT Gender Identity Not on file Sexual Orientation Not on file documented as of this encounter Plan of Treatment Not on file documented as of this encounter Visit Diagnoses Not on filedocumented in this encounter Care Teams Aerial Gunner Superintendent Relationship Specialty Start Date End Date Shasta Holder MD [address] [place] [address] PCP - General 12/03/16 10/04/22 documented as of this encounter
== END 2024-05-17 12:30 | disposition home or self-care (01) ==
PROVIDERS: PCP Nurse Practitioner Family; Visit Provider Nurse Practitioner Family
DX: E11.9 Type 2 diabetes mellitus without complications (principal); R42 Dizziness and giddiness; Z23 Encounter for immunization

== ENCOUNTER → 2024-05-17 11:41 | Outpatient (BNVA) | payer BC, SELFPAY | PROVIDERS: PCP Nurse Practitioner Family; Visit Provider Nurse Practitioner Family | DX: E11.9 Type 2 diabetes mellitus without complications (principal); R42 Dizziness and giddiness; Z23 Encounter for immunization | CPT/HCPCS: 90471; 90656; 96127 ==

== ENCOUNTER → 2024-05-29 13:00 | Outpatient (BNV) | payer BC, SELFPAY | PROVIDERS: PCP Nurse Practitioner Family; Visit Provider Internal Medicine | DX: Z12.31 Encounter for screening mammogram for malignant neoplasm of breast (principal) | CPT/HCPCS: 77063; 77067 ==

== ENCOUNTER 2025-01-12 10:54 | Outpatient (REF) | payer BC, SELFPAY ==
--- OUTSIDE RECORDS SUMMARY | 2025-01-12 10:57 | XMS_ITS | Clinical Summary ---
Author Organization [facility] Address [address] [place] [phone] Phone Care Team Providers Care Family Coach Name Role Phone Unavailable Primary Care Provider Unavailabl e Immunizations Immunization Administration Dates Next Due DTP 01/06/1989, 6,1984,1984,1984 Hep B, ped/adol 11/19/1999,01/15/1998,09/25/1997 Hib (HbOC) 05/14/1986 MMR 03/01/1995,07/16/1985 OPV 01/06/1989, 6,1984,1984,1984 Td (adult) (Teniva), 5 Lf t etanus toxoid, PF, adsorbed [...] 09/26/1997 09/25/1997, 01/06/1989, 11/26/1985, Additional history exists HPV Vaccines (1 - 3-dose SCDM series) 2011 Influenza Vaccines (#1) 2024 COVID-19 Vaccine ( season) 2024 HIB Vaccines Completed 05/14/1986 IPV Vaccines Completed 01/06/1989, 07/1985, 1984, Additional history exists MMR Vaccines Completed 03/01/1995, 07/16/1985 Hepatitis B Vaccines Completed 11/19/1999, 01/15/1998, 09/25/1997 Hepatitis A Vaccines Aged Out No long [...]
--- OUTSIDE RECORDS SUMMARY | 2025-01-12 10:57 | XMS_ITS | Encounter Summary ---
Author Organization [facility] Address [address] [place] [address] Phone Care Team Providers Care Non Linear Editor Name Role Phone Shasta Holder MD Primary Care Provider [phone] Encounter Details Date Type Department Care Team (Late st Contact Info) Description 12/09/2016 Conversion Encounter [facility] [address] [address] Social History Tobacco Use Types Packs/Day Years [...] on filedocumented in this encounter Care Teams Non Linear Editor Relationship Specialty Start Date End Date Shasta Holder MD [address] [place] [address] PCP - General 12/03/16 10/04/22 documented as of this encounter
[2025-01-12 13:41] LABS: MANUAL DIFF FLAG NO
[2025-01-12 13:49] LABS: Hematocrit 40.7 % (37.0-47.0); Hemoglobin 12.8 g/dl (12.0-16.0); Imm Gran Abs Auto 0.02 X10*3/uL (0.00-0.03); Imm Gran Pct Auto 0.2 % (0.0-0.4); Lymphocytes Absolute Auto 1.9 X10*3/uL (1.2-4.9); Mean Corpuscular HGB Conc 31.4 g/dl (31.0-35.0); Mean Corpuscular Hemoglobin 27.5 pg (27.0-33.0); Mean Corpuscular Volume 87.5 fL (80.0-98.0); NRBC Abs Auto 0.000 X10*3/uL (0.0-0.012); NRBC Pct Auto 0.0 /100WBC (0.0-0.2); Platelet Count 266 X10*3/uL (160-400); Red Blood Count 4.65 X10*6/uL (4.20-5.50); White Blood Count 8.4 X10*3/uL (4.8-10.8)
[2025-01-12 14:01] LABS: Hemoglobin A1C 113.6458 umol/L; Total Hemoglobin (HGBA1C) 3296.4554 umol/L
[2025-01-12 14:09] LABS: Appearance Urine Clear; Glucose Urine UA Negative (Negative); PH 7.0 (5.0-9.0); Specific Gravity - Urine 1.020 (1.005-1.025)
[2025-01-12 14:12] LABS: Alanine Aminotransferase 6 U/L (0-31); Albumin Level 4.1 g/dL (3.5-5.0); Alkaline Phosphatase 85 U/L (39-117); Anion Gap 11 (12-20); Aspartate Amino Transferase 21 U/L (5-31); Blood Urea Nitrogen 10 mg/dL (9-16); Calcium 8.6 mg/dL (8.4-10.2); Carbon Dioxide 26 mmol/L (22-29); Chloride 106 mmol/L (96-108); Cholesterol 193 mg/dL (<200); Estimated Glomerular Filt Rate > 60; HDL Cholesterol 56 mg/dL (>40); Potassium 3.9 mmol/L (3.3-5.1); Sodium 139 mmol/L (135-145); Total Protein 7.2 g/dL (6.5-8.0); Triglycerides 110 mg/dL (<150)
[2025-01-12 14:23] LABS: Microalbum/Creatinine Ratio Ur 3.8 ug/mg cr (<30)
[2025-01-12 15:24] LABS: Free T4 (Free Thyroxine) 0.89 ng/dL (0.71-1.85)
== END 2025-01-12 10:55 | disposition home or self-care (01) ==
LOC: HO.HMGCLDS 10:54
PROVIDERS: PCP Nurse Practitioner Family; Visit Provider Nurse Practitioner Family
DX: E11.9 Type 2 diabetes mellitus without complications (principal)
CPT/HCPCS: 36415; 80053; 80061; 81003; 82043; 82570; 83036; 84439; 84443; 85025

== ENCOUNTER 2025-02-04 10:28 | Outpatient (AMB) | payer BC, SELFPAY ==
--- OUTSIDE RECORDS SUMMARY | 2025-02-04 10:31 | XMS_ITS | Clinical Summary ---
Author Organization [facility] Address [address] [place] [phone] Phone Care Team Providers Care Director Print Name Role Phone Unavailable Primary Care Provider [...]
--- OUTSIDE RECORDS SUMMARY | 2025-02-04 10:31 | XMS_ITS | Encounter Summary ---
Author Organization [facility] Address [address] [place] [address] Phone Care Team Providers Care Vice Principal Name Role Phone Shasta Holder MD Primary Care Provider [phone] Encounter Details Date Type Department Care Team (Late st Contact Info) Description 12/09/2016 Conversion Encounter [facility] [address] [address] Social History Tobacco Use Types Packs/Day Years [...] on filedocumented in this encounter Care Teams Vice Principal Relationship Specialty Start Date End Date Shasta Holder MD [address] [place] [address] PCP - General 12/03/16 10/04/22 documented as of this encounter
[2025-02-04 10:50] VITALS: BP 102/70; PULSE 91; TEMP 36.7; O2SAT 99; BMI 31.9
--- NOTE | 2025-02-04 10:50 | AM.OFFWIN_ITS ---
Intake Vital Signs 3 02/04/25 10:50 Height 5 ft 3 in Weight 180 lb BMI 31.9 BP 102/70 Blood Pressure Location Lt brachial Position Sitting Pulse 91 Pulse Source Pulse Oximeter Temp 98.1 F Temp Source Oral Pulse Oximetry (%) 99 Intake Visit Reasons: EP cyst on back rt thigh Patient Tobacco Use Status: Never used Tobacco Allergies lisinopril Allergy (Mild, Verified 05/17/24 11:50) Weakness metformin Adverse Reaction (Mild, Verified 02/04/25 10:52) Dizziness Medication List - Last Reconciled 02/04/25 by Chloe Wei NP atorvastatin 10 mg PO BEDTIME blood sugar diagnostic (OneTouch Verio test strips) test blood sugar once a day blood sugar diagnostic (Accu-Chek Guide test strips) Test blood sugar twice a day blood-glucose meter (OneTouch Verio Flex Meter) As directed blood-glucose meter (Accu-Chek Guide Glucose Meter) As directed lancets (OneTouch Delica Plus Lancet) Test blood sugar once a day lancets (Accu-Chek Softclix Lancets) Test blood sugar twice a day sulfamethoxazole-trimethoprim 800-160 mg 1 tab PO BID 10 days tirzepatide 5 mg (0.5 mL) subcut QWEEK Do you need a note to return to daycare/school/sports/work: No HPI HPI Comments 2 History of Present Illness0 Details 39 y/o Female patient who [facility] with c/o Large painful Abscess posterior right thigh for few days now. Describes the abscess as painful, red and draining Pus. Denies fevers, chills, nausea or vomiting. [facility] Medical History (Updated 02/04/25 @ 12:29 by Chloe Wei NP) Abscess of skin and subcutaneous tissue Elevated sed rate Elevated C-reactive protein (CRP) Arthralgia Generalized body aches Surgical History Hx of cholecystectomy Family History Mother Arthritis Diabetes Vascular abnormality Social History Housing: Apartment Alcohol intake: current Alcohol intake frequency: holidays/special occasions only Patient Tobacco Use Status: Never used Tobacco e-Cigarette/Vaping Use: Never Used service: No Current occupational status: employed Cognitive needs: No Hearing needs: No Vision needs: No Physical Exam Vital Signs: Last Vital Signs Temp 98.1 F 02/04/25 10:50 Pulse 91 02/04/25 10:50 BP 102/70 02/04/25 10:50 Pulse Ox 99 02/04/25 10:50 BMI result Body Mass Index 31.9 Const General: no acute distress; No comfortable Nutritional Appearance: overweight Orientation/consciousness: patient oriented x3 Neuro General: patient oriented x3, gait normal and moves all extremities Extrem Upper/lower leg/hip images: 2 1. Erythema, Swelling, Indurated, Warmth, and tender to touch. There is an opening, draining yellowish discharge. Psych Speech and movement: Normal speech and movement present Assessment & Plan Assessment & Plan (1) Abscess of skin and subcutaneous tissue: Code(s): L02.91 - Cutaneous abscess, unspecified Qualifiers: Site of cutaneous abscess: extremity Site of cutaneous abscess of extremity: lower extremity Laterality: right Qualified Code(s): L02.415 - Cutaneous abscess of right lower limb Plan: Abscess is open and draining yellow drainage. Continue applying warm compress to promote drainage. Ordered Bactrim for 10 days. RTC if no improvement in 72 hours. Advised to take NSAIDs or Acetaminophen for pain relief. Medications: New 2 sulfamethoxazole-trimethoprim 800-160 mg 1 tab PO BID 20 tabs 0RF 10 days L02.91 - Cutaneous abscess, unspecified Coding Level of Care Code Est Pt Level 4 (60601) Diagnoses Cutaneous abscess of right lower extremity L02.415 Site of cutaneous abscess: extremity Site of cutaneous abscess of extremity: lower extremity Laterality: right Time Spent (min) 20
== END 2025-02-04 11:54 | disposition home or self-care (01) ==
PROVIDERS: PCP Nurse Practitioner Family; Visit Provider Nurse Practitioner Family
DX: L02.415 Cutaneous abscess of right lower limb (principal)

== ENCOUNTER 2025-02-04 10:28 | Outpatient (REF) | payer BC, SELFPAY | END 2025-02-04 10:29 | disposition home or self-care (01) | LOC: HO.HMGCLDS 10:28 | PROVIDERS: PCP Nurse Practitioner Family; Visit Provider Nurse Practitioner Family | DX: L02.415 Cutaneous abscess of right lower limb (principal); R79.89 Other specified abnormal findings of blood chemistry; Z13.29 Encounter for screening for other suspected endocrine disorder | CPT/HCPCS: 36415; 83520; 84443; 84481; 86376 ==

== ENCOUNTER 2025-02-06 12:02 | Outpatient (AMB) | payer BC, SELFPAY ==
--- NOTE | 2025-02-06 13:07 | AM.OFFWIN_ITS ---
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 - The abscess appeared approximately one week ago and has been increasing in size and pain. - she was seen at this clinic 3 days ago and prescribed bactrim twice daily which she has been taking, but it is getting worse. - Initially, there was minimal drainage, but the condition has worsened despite covering the area. - The patient reports that the abscess a ppears to be eroding the skin and remains moist and hot. - The patient has been managing the absc ess with warm baths and attempts to express the contents, but without significant improvement. - The patient has diabetes mellitus, whi ch complicates the healing process. - Current treatment with Bactrim has not been effective, and the patient expresses concern about potential MRSA infection. Physical Exam General: Cooperative, healthy appearing, comfortable, no acute distress and well developed Orientation: Patient oriented x3 Limitations: No limitations Head: Normal to inspection Ears: Hearing grossly normal bilaterally Nose: Normal External nose present Face and sinus: Normal facial exam Eyes: Appearance normal, both eyes and all related structures Neck: Normal visual inspection and Yes full ROM Respiratory: Normal respiratory effort and able to speak in complete sentences. Skin: 5cm round area of warmth and erythema with induration in right posterior thigh, only able to manually express blood with scant purulence. Neuro: Patient oriented x3 Extremities: Normal to inspection Review of Systems - Skin: Reports painful abscess on the t high with worsening symptoms over the past week. - Endocrine: Reports diabetes mellitus, blood sugars are well-controlled. All systems reviewed and are unremarkable except as noted in HPI [facility] Medical History (Updated 02/06/25 @ 13:34 by Francy Hernandez PA-C) Abscess of skin and subcutaneous tissue Elevated sed rate Elevated C-reactive protein (CRP) Arthralgia Generalized body aches Surgical History Hx of cholecystectomy Family History Mother Arthritis Diabetes Vascular abnormality Social History Housing: Apartment Alcohol intake: current Alcohol intake frequency: holidays/special occasions only Patient Tobacco Use Status: Never used Tobacco e-Cigarette/Vaping Use: Never Used service: No Current occupational status: employed Cognitive needs: No Hearing needs: No Vision needs: No Physical Exam Vital Signs: Last Vital Signs Temp 98.2 F 02/06/25 13:08 Pulse 81 02/06/25 13:08 Resp 16 02/06/25 13:08 BP 104/70 02/06/25 13:08 Pulse Ox 99 02/06/25 13:08 Oxygen Delivery Method Room Air 02/06/25 13:08 BMI result Body Mass Index 32.1 Assessment & Plan Assessment & Plan (1) Cellulitis and abscess of leg: Code(s): L03.119 - Cellulitis of unspecified part of limb; L02.419 - Cutaneous abscess of limb, unspecified Plan: Patient was informed and verbally consented to the use of an ambient scribe for clinic note documentation during this visit. Abscess - The patient was initially treated with Bactrim, which was ineffective. - Due to the lack of improvement, the treatment plan was adjusted to include amoxicillin and doxycycline. - If the condition worsens despite using the amox and doxy, or if she develops a fever, the patient is advised to seek care at the emergency department as she may need IV antibiotics if she fails outpatient antibiotics. Medications: New doxycycline hyclate 100 mg PO BID 14 tabs 0RF amoxicillin 875 mg PO Q12H 14 tabs 0RF Discontinued sulfamethoxazole-trimethoprim 800-160 mg Discontinued Reason: Doctor's Order 1 tab PO BID 10 days 20 tabs 0RF L02.91 - Cutaneous abscess, unspecified Coding Level of Care Code Est Pt Level 4 (04462) Diagnoses Cellulitis and abscess of leg L03.119; L02.419
[2025-02-06 13:08] VITALS: BP 104/70; PULSE 81; RESP 16; TEMP 36.8; O2SAT 99; BMI 32.1
--- OUTSIDE RECORDS SUMMARY | 2025-02-06 15:13 | XMS_ITS | Encounter Summary ---
Author Organization [facility] Address [address] [place] [phone] Phone Care Team Providers Care Paper Cone Maker Name Role Phone Shasta Holder MD Primary Care Provider [phone] Encounter Details Date Type Department Care Team (Late st Contact Info) Description 12/09/2016 Conversion Encounter [facility] [address] [id number] Social History Tobacco Use Types Packs/Day Years [...] on filedocumented in this encounter Care Teams Paper Cone Maker Relationship Specialty Start Date End Date Shasta Holder MD [address] [place] [address] PCP - General 12/03/16 10/04/22 documented as of this encounter
--- OUTSIDE RECORDS SUMMARY | 2025-02-06 15:13 | XMS_ITS | Clinical Summary ---
Author Organization [facility] Address [address] [place] [phone] Phone Care Team Providers Care Education Reviewer Name Role Phone Unavailable Primary Care Provider [...]
== END 2025-02-06 13:40 | disposition home or self-care (01) ==
PROVIDERS: PCP Nurse Practitioner Family; Visit Provider Physician Assistant
DX: L03.119 Cellulitis of unspecified part of limb (principal); L02.419 Cutaneous abscess of limb, unspecified

== ENCOUNTER 2025-02-07 13:25 | Outpatient (AMB) | payer BC, SELFPAY ==
--- NOTE | 2025-02-07 13:27 | MHC.OFFVIS ---
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 Inspector Canvas Products Required: No Accompanied by: Self / Same As Patient Allergies lisinopril Allergy (Mild, Verified 02/07/25 13:31) Weakness metformin Adverse Reaction (Mild, Verified 02/07/25 13:31) Dizziness Medication List - Last Reconciled 02/07/25 by Vishal Gregg MD amoxicillin 875 mg PO Q12H atorvastatin 10 mg PO BEDTIME blood sugar diagnostic (OneTouch Verio test strips) test blood sugar once a day blood sugar diagnostic (Accu-Chek Guide test strips) Test blood sugar twice a day blood-glucose meter (OneTouch Verio Flex Meter) As directed blood-glucose meter (Accu-Chek Guide Glucose Meter) As directed doxycycline hyclate 100 mg PO BID lancets (OneTouch Delica Plus Lancet) Test blood sugar once a day lancets (Accu-Chek Softclix Lancets) Test blood sugar twice a day tirzepatide 5 mg (0.5 mL) subcut QWEEK HPI Comments Details: 39 YO F with PMHx [] who is seen in consultation for suppressed TSH at the request of PCP. No thyroid issues in past Currently denies any dysphagia or hoarseness of voice. Denies sensation of swelling in the neck or difficulty breathing while lying flat. Denies any tenderness in the neck. Denies any palpitations, tremors, weight loss, frequent bowel movements. Has hair loss, dry skin, no heat but cold intolerance, weight gain, confusion. [Denies] any history of head or neck irradiation. Denies any family history of thyroid cancer. Thyroid US: Labs: [facility] Medical History Abscess of skin and subcutaneous tissue Elevated sed rate Elevated C-reactive protein (CRP) Arthralgia Generalized body aches Surgical History Hx of cholecystectomy Family History Mother Arthritis Diabetes Vascular abnormality Social History Housing: Apartment Alcohol intake: current Alcohol intake frequency: holidays/special occasions only Patient Tobacco Use Status: Never used Tobacco e-Cigarette/Vaping Use: Never Used service: No Current occupational status: employed Cognitive needs: No Hearing needs: No Vision needs: No Physical Exam Vital Signs: Last Vital Signs Pulse 76 02/07/25 13:29 BP 118/64 02/07/25 13:29 Pulse Ox 98 02/07/25 13:29 Oxygen Delivery Method Room Air 02/07/25 13:29 BMI result Body Mass Index 32.4 HEENT reveals absence of lid lag , stare or proptosis or eyebrow loss. Thyroid gland measure 15 gms . No nodules or tenderness palpated. There is no cervical adenopathy palpated. Lungs CTA. Heart S1, S2 Reg R/R -M/R/G. Abdominal exam benign. Skin exam reveals absence of dryness or thyroid dermopathy or vitiligo. Nail exam reveals absence of thyroid acropachy or oncholysis. Neurologic exam reveals 2+ reflexes . Muscle Strength is 5/5 proximally. There are no tremors in upper extremities. Assessment & Plan Assessment & Plan (1) Low TSH level: Code(s): R79.89 - Other specified abnormal findings of blood chemistry Category: Medical Plan: This is a 39-year-old female found to have a low TSH level and subsequently checked found to be normal. Patient appears clinically and biochemically euthyroid There was no need for any further endocrine workup or follow up. Patient returned to the care of her primary care provider returned back to endocrinology as needed Coding Level of Care Code New Pt Level 4 (68640) Diagnoses Low TSH level R79.89
[2025-02-07 13:29] VITALS: BP 118/64; PULSE 76; O2SAT 98; BMI 32.4
--- OUTSIDE RECORDS SUMMARY | 2025-02-07 16:50 | XMS_ITS | Encounter Summary ---
Author Organization [facility] Address [address] [place] [phone] Phone Care Team Providers Care Manager Production Name Role Phone Shasta Holder MD Primary Care Provider [phone] Encounter Details Date Type Department Care Team (Late st Contact Info) Description 12/09/2016 Conversion Encounter [facility] [address] [address] Social History Tobacco Use Types Packs/Day Years [...] on filedocumented in this encounter Care Teams Manager Production Relationship Specialty Start Date End Date Shasta Holder MD [address] [place] [address] PCP - General 12/03/16 10/04/22 documented as of this encounter
--- OUTSIDE RECORDS SUMMARY | 2025-02-07 16:50 | XMS_ITS | Clinical Summary ---
Author Organization [facility] Address [address] [place] [phone] Phone Care Team Providers Care Tube Cleaner Name Role Phone Unavailable Primary Care Provider [...]
== END 2025-02-07 13:51 | disposition home or self-care (01) ==
LOC: HO.ENCR 13:26
PROVIDERS: PCP Nurse Practitioner Family; Visit Provider Internal Medicine Endocrinology, Diabetes & Metabolism
DX: R79.89 Other specified abnormal findings of blood chemistry (principal)
CPT/HCPCS: 99204

== ENCOUNTER 2025-02-09 11:53 | Observation (INO) | payer BC, SELFPAY ==
--- NOTE | ~2025-02-09 | US_ITS ---
CLINICAL HISTORY: RT THIGH ABSCESS Ultrasound right thigh soft tissues Comparison: None Findings: There is edema of the soft tissues in the area of concern. There is a 1.0 x 0.8 x 1.6 cm loculated pocket of fluid within the subcutaneous tissues. This does not appear to be walled-off and there is no peripheral enhancement. Impression: 1. Small loculated pocket of fluid in an area of edema within the right thigh raising the possibility of a developing abscess. This document has been electronically signed by: Leidy Parsons MD on 02/09/2025 18:42:13
--- NOTE | 2025-02-09 12:02 | ED.GENADULT ---
HPI - General Adult General Chief complaint: Skin/Abscess/Foreign Body Stated complaint: abscess behind Rt thigh Time Seen by Provider: 02/09/25 12:43 Source: patient and RN notes reviewed Mode of arrival: ambulatory Limitations: no limitations History of Present Illness ED Provider: Mirna Mock PA-C HPI narrative: This is a 39-year-old female, with a past medical history of diabetes, who presents emergency department with concerns of skin infection to posterior right thigh. Patient states that her symptoms started approximately 1 week ago. Patient initially presented to the walk-in clinic on February 04 for this, and was started on Bactrim. She was then seen on February 06 and was switched to amoxicillin and doxycycline. She has been taking these antibiotics which has provided her without any relief. She does report that the swelling has improved however reports that there appearance of it has changed, now has multiple areas of white dots throughout the area. She denies any fevers, she does endorse some chills. She does reports the area drains slightly throughout the day. Reports pain, redness, and swelling to the region. She reports that her sugars have been well controlled. Denies history of similar symptoms in the past. No other complaints or concerns at this time. MD complaint: Abscess Onset (ago): day(s) Location: lower extremity Radiation: non-radiation Quality: aching Pain Consistency: constant Relieving factors: none Exacerbating factors: none Associated symptoms: denies other symptoms Treatments prior to arrival: none Related Data Previous Rx's ?Medication ?Instructions ?Recorded blood sugar diagnostic (OneTouch #100 ea 07/05/23 Verio test strips) blood-glucose meter (OneTouch #1 ea 07/05/23 Verio Flex Meter) lancets 33 gauge (OneTouch Delica #100 ea 07/05/23 Plus Lancet) blood-glucose meter (Accu-Chek #1 ea 07/27/23 Guide Glucose Meter) lancets (Accu-Chek Softclix #200 ea 07/27/23 Lancets) tirzepatide 5 mg/0.5 mL 5 mg (0.5 mL) subcut QWEEK #2 mL 10/29/24 subcutaneous pen injector blood sugar diagnostic (Accu-Chek #200 ea 10/31/24 Guide test strips) atorvastatin 10 mg tablet 10 mg PO BEDTIME #90 tabs 02/05/25 amoxicillin 875 mg tablet 875 mg PO Q12H #14 tabs 02/06/25 doxycycline hyclate 100 mg tablet 100 mg PO BID #14 tabs 02/06/25 Allergies Allergy/AdvReac Type Severity Reaction Status Date / Time lisinopril Allergy Mild Weakness Verified 02/09/25 12:08 metformin AdvReac Mild Dizziness Verified 02/09/25 12:08 Review of Systems Review of Systems: Constitutional : No Fever, No Chills ENT/Mouth : No sore throat, No Rhinorrhea Eyes: No Eye Pain, No Swelling, No Redness Cardiovascular : No Chest Pain, No SOB Respiratory : No Cough, No Sputum Gastrointestinal : No Nausea, No Vomiting, No Diarrhea, No abdominal Pain Genitourinary : No Dysuria, No Hematuria Musculoskeletal : No joint pain, No Myalgias, No Joint Swelling Skin : No Skin Lesions, positive skin rash Neuro : No Weakness, No Numbness, No Headache All other systems reviewed and are negative Yes all other systems are reviewed and are negative Constitutional: Constitutional: Reports as per [facility] Past Medical History Medical History Abscess of skin and subcutaneous tissue Elevated sed rate Elevated C-reactive protein (CRP) Arthralgia Generalized body aches Surgical History Hx of cholecystectomy Family History Family History Mother Arthritis Diabetes Vascular abnormality Social History Social History Housing: Apartment Alcohol intake: current Alcohol intake frequency: holidays/special occasions only Patient Tobacco Use Status: Never used Tobacco e-Cigarette/Vaping Use: Never Used Advance Directives: No Advance Directives Information Provided: Yes Patient : No service: No Current occupational status: employed Cognitive needs: No Hearing needs: No Vision needs: No Physical Exam ED Vital Signs: Vital Signs - 24 hr 02/09/25 12:04 Temperature 98.4 F Pulse Rate 71 Respiratory Rate 18 Blood Pressure 144/65 H Pulse Oximetry 98 Oxygen Delivery Method Room Air BMI result Body Mass Index 28.6 Const General: cooperative, comfortable and no acute distress Orientation/consciousness: patient oriented x3 Limitations: no limitations HENMT Head: Yes normal to inspection, Yes normocephalic and Yes atraumatic Ears: hearing grossly normal bilaterally General nose exam: Normal external nose present Face and sinus: Yes normal facial exam Mouth: Normal oral and palatal mucosa present, oropharynx normal and moist mucous membranes Throat: Yes posterior oropharynx normal Eyes General: appearance normal, both eyes and all related structures Eyelids: Yes eyelids normal Conjunctivae: conjunctivae normal Sclerae: sclerae normal Pupils: Equal, round and reactive pupils present EOM: EOMs intact bilaterally Neck Neck: Yes normal visual inspection, Yes full ROM and Yes no lymphadenopathy Lymphatic: no lymphadenopathy noted Chest Chest palpation & inspection: normal inspection of the chest Resp Effort & Inspection: normal respiratory effort and able to speak in complete sentences Auscultation: clear to auscultation bilaterally, no crackles, no rales, no rhonchi and no wheezes Cardio Rate: regular rate Rhythm: regular rhythm Heart sounds: S1 normal heart sound present and S2 normal heart sound present GI Inspection: Yes normal to inspection Skin Other: Right posterior thigh with area of induration, and fluctuance noted, multiple areas of purulence noted. No active drainage. Mildly tender to palpation, she has slight area of erythema noted surrounding this, Tender to palpation. General skin exam: no rashes or lesions noted Neuro General: patient oriented x3 and moves all extremities Cranial nerves: Yes Equal, round and reactive pupils present Extrem General: Yes normal to inspection Right upper extremity: normal to inspection Left upper extremity: normal to inspection Right lower extremity: normal to inspection Left lower extremity: normal to inspection Course Course Course Narrative: This is a rapid medical exam performed by Delmy Rush NP: Additional HPI, ROS, PE not included below will be deferred to primary provider. Patient is a 39y/o F with pmhx of DM presenting with complaint of abscess to right posterior thigh. Went to urgent care Mon, was started on Bactrim. Area worsened, went back to on Tue and was given doxy and amox, area still not improving. States did not have I&D and area not draining spontaneously. Plan: labs Medications Administered Discontinued Medications Generic Name Dose Route Start Last Admin Trade Name Freq PRN Reason Stop Dose Admin Acetaminophen 975 mg 02/09/25 13:04 02/09/25 13:10 Acetaminophen 325 Mg Tablet PO 10/18/25 13:05 975 mg ONCE ONE Administration Diphtheria/Tetanus/Acell Pertussis 0.5 ml 02/09/25 13:08 02/09/25 13:16 Diphth,Pertus(Acell),Tet Adult 0.5 Ml Syringe IM 02/09/25 13:09 0.5 ml .ONCE ONE Administration Lidocaine HCl 2 appl 02/09/25 13:03 02/09/25 13:11 Lidocaine 4 % Cream Kit TOPICAL 02/09/25 13:04 2 appl ONCE ONE Administration Protocol Lidocaine HCl 5 ml 02/09/25 13:03 02/09/25 14:59 Lidocaine Hcl 1 % Mpf 5 Ml Vial INFILTRATI 02/09/25 13:04 5 ml ONCE ONE Administration Procedures Abscess I/D Site: lower extremity Side (if applicable): right Local Anesthetic: lidocaine 1% Amount of anesthesia used (mL): 4 Technique: incised with blade Amount of fluid expressed (mL): 1 Sent for culture/gram staining?: Yes Irrigation: Yes Packing used?: none Medical Decision Making Medical Decision Making [facility] Narrative: This is a 39-year-old female, with a past medical history of diabetes, who presents emergency department with concerns of skin infection to posterior right thigh. On arrival, patient is mildly hypertensive at 144/65, all other vital signs within normal limits. She is speaking full sentences under no acute distress. Patient with area of induration and fluctuance noted to her posterior right thigh. Differential diagnoses include abscess, cyst, cellulitis. Labs were obtained prior to my evaluation. Abscess likely not responding to antibiotics in totality as patient needing incision and drainage. She is agreeable for this procedure. Will medicate with Tylenol, and will also apply topical lidocaine x2, to help with local anesthesia. We will update tetanus. 3:01 PM 02/09/2025 (Mirna Mock PA-C): Bedside incision and drainage was performed however no significant drainage expressed, given extensive cellulitis, as well as failure p.o. antibiotics, we will discussed with hospitalist for possible admission for cellulitis - patient is agreeable for admission Differential Diagnosis Differential Diagnoses: The differential diagnosis associated with the presentation includes See above Lab Data [facility] Lab Attestation statement: I reviewed the patient's lab results. See MDM 02/09/25 12:30 02/09/25 12:30 Labs: Lab Results 02/09/25 Range/Units 12:30 WBC 8.6 (4.8-10.8) X10*3/uL RBC 4.47 (4.20-5.50) X10*6/uL Hgb 12.3 (12.0-16.0) g/dl Hct 38.1 (37.0-47.0) % MCV 85.2 (80.0-98.0) fL MCH 27.5 (27.0-33.0) pg MCHC 32.3 (31.0-35.0) g/dl RDW 12.1 (11.0-16.0) % Plt Count 371 D (160-400) X10*3/uL MPV 10.0 (9.4-12.3) fL Immature Gran % (Auto) 0.2 (0.0-0.4) % Neut % (Auto) 67.3 (45-73) % Lymph % (Auto) 24.3 (20-40) % [place] % (Auto) 6.1 (2-11) % Eos % (Auto) 1.3 (0-4) % Baso % (Auto) 0.8 (0-2) % Lymph # (Auto) 2.1 (1.2-4.9) X10*3/uL [place] # (Auto) 0.5 (0.1-1.2) X10*3/uL Eos # (Auto) 0.1 (0.0-0.4) X10*3/uL Baso # (Auto) 0.1 (0.0-0.2) X10*3/uL Abs Immat Gran (auto) 0.02 (0.00-0.03) X10*3/uL Absolute Neuts (auto) 5.8 (2.0-8.3) x10*3/uL Absolute Nucleated RBC 0.000 (0.0-0.012) X10*3/uL Nucleated RBC % (auto) 0.0 (0.0-0.2) /100WBC ESR 33 H (0-20) MM/HR Sodium 141 (135-145) mmol/L Potassium 3.8 (3.3-5.1) mmol/L Chloride 106 (96-108) mmol/L Carbon Dioxide 26 (22-29) mmol/L Anion Gap 13 (12-20) BUN 10 (9-16) mg/dL Creatinine 0.67 (0.5-1.4) mg/dL Estim Creat Clear Calc 119.3 Estimated GFR > 60 Random Glucose 102 (60-115) mg/dL Calcium 8.9 (8.4-10.2) mg/dL Total Bilirubin 0.3 (0.0-1.0) mg/dL AST 13 (5-31) U/L ALT 10 (0-31) U/L Alkaline Phosphatase 91 (39-117) U/L C-Reactive Protein 3.20 H (< or = 0.50) mg/dL Total Protein 7.2 (6.5-8.0) g/dL Albumin 4.2 (3.5-5.0) g/dL Radiology Impression Discussion of test interpretation with radiology: I have reviewed the radiologist's reading. External Record Review External record reviewed: Inpatient record, Office record, Outpatient record, Prior outpatient labs, Prior outpatient radiology, Primary care record and Outside ED record Discharge Plan Discharge Clinical Impression: Cellulitis Prescriptions: No Action (DME) blood-glucose meter [OneTouch Verio Flex meter] [facility] See Rx Instructions .Route Qty: 1 0RF Rx Instructions: As directed (DME) lancets [OneTouch Delica Plus Lancet] [facility] See Rx Instructions .Route Qty: 100 1RF Rx Instructions: Test blood sugar once a day (DME) OneTouch Verio test strips Strip See Rx Instructions .Route Qty: 100 1RF Rx Instructions: test blood sugar once a day (DME) blood-glucose meter [Accu-Chek Guide Glucose Meter] Misc See Rx Instructions .Route Qty: 1 0RF Rx Instructions: As directed (DME) lancets [Accu-Chek [facility]clix Lancets] [facility] See [facility] Instructions .Route Qty: 200 1RF Rx Instructions: Test blood sugar twice a day tirzepatide 5 mg/0.5 mL pen injector 5 mg subcut QWEEK Qty: 2 5RF (DME) Accu-Chek Guide test strips Strip See Rx Instructions .Route Qty: 200 1RF Rx Instructions: Test blood sugar twice a day atorvastatin 10 mg tablet 10 mg PO BEDTIME Qty: 90 1RF amoxicillin 875 mg tablet 875 mg PO Q12H Qty: 14 0RF doxycycline hyclate 100 mg tablet 100 mg PO BID Qty: 14 0RF Print Language: Belarusian
[2025-02-09 12:04] VITALS: BP 144/65; PULSE 71; RESP 18; TEMP 36.9; O2SAT 98; BMI 28.6
[2025-02-09 12:51] LABS: MANUAL DIFF FLAG NO
[2025-02-09 12:53] LABS: Hematocrit 38.1 % (37.0-47.0); Hemoglobin 12.3 g/dl (12.0-16.0); Imm Gran Abs Auto 0.02 X10*3/uL (0.00-0.03); Imm Gran Pct Auto 0.2 % (0.0-0.4); Lymphocytes Absolute Auto 2.1 X10*3/uL (1.2-4.9); Mean Corpuscular HGB Conc 32.3 g/dl (31.0-35.0); Mean Corpuscular Hemoglobin 27.5 pg (27.0-33.0); Mean Corpuscular Volume 85.2 fL (80.0-98.0); NRBC Abs Auto 0.000 X10*3/uL (0.0-0.012); NRBC Pct Auto 0.0 /100WBC (0.0-0.2); Platelet Count 371 X10*3/uL (160-400); Red Blood Count 4.47 X10*6/uL (4.20-5.50); White Blood Count 8.6 X10*3/uL (4.8-10.8)
--- OUTSIDE RECORDS SUMMARY | 2025-02-09 13:09 | XMS_ITS | Encounter Summary ---
Author Organization [facility] Address [address] [place] [id number] Phone Care Team Providers Care Nursing Service Director Name Role Phone Shasta Holder MD Primary Care Provider [phone] Encounter Details Date Type Department Care Team (Late st Contact Info) Description 12/09/2016 Conversion Encounter [facility] [address] [address] Social History Tobacco Use Types Packs/Day Years [...] on filedocumented in this encounter Care Teams Nursing Service Director Relationship Specialty Start Date End Date Shasta Holder MD [address] [place] [address] PCP - General 12/03/16 10/04/22 documented as of this encounter
--- OUTSIDE RECORDS SUMMARY | 2025-02-09 13:09 | XMS_ITS | Clinical Summary ---
Author Organization [facility] Address [address] [place] [phone] Phone Care Team Providers Care Drilling Rig Operator Name Role Phone Unavailable Primary Care [...]
[2025-02-09 13:11] LABS: Alanine Aminotransferase 10 U/L (0-31); Albumin Level 4.2 g/dL (3.5-5.0); Alkaline Phosphatase 91 U/L (39-117); Anion Gap 13 (12-20); Aspartate Amino Transferase 13 U/L (5-31); Blood Urea Nitrogen 10 mg/dL (9-16); Calcium 8.9 mg/dL (8.4-10.2); Carbon Dioxide 26 mmol/L (22-29); Chloride 106 mmol/L (96-108); Creatinine Clr Calc Pharmacy 119.3; Estimated Glomerular Filt Rate > 60; Potassium 3.8 mmol/L (3.3-5.1); Sodium 141 mmol/L (135-145); Total Protein 7.2 g/dL (6.5-8.0)
[2025-02-09] MEDS: Lidocaine 4 % Cream KIT 2 APPL TOPICAL (13:11)
[2025-02-09] MEDS: Diphth,Pertus(ACell),Tet Adult 0.5 ML SYRINGE IM (13:16)
[2025-02-09] MEDS: Lidocaine HCl 1 % MPF 5 ML VIAL INFILTRATI (14:59)
[2025-02-09] MEDS: vancomycin/NS 2,000 MG/500 ML PLAST..BAG 250 MG IV (16:01)
--- NOTE | 2025-02-09 16:03 | HO.NURTONUR ---
39 yr old female admitted for infection/abscess to R posterior thigh. Pt comes to ED reporting failed outpatient abx (two different abx) from urgent care. Pt reports abscess began as a pimple that erupted after warm compresses. She states soon afterward the area became red, inflamed, very painful and with drainage. R posterior thigh with large area of erythema with circular abscess/opening (photos in ED provider note.) Wound area is tender to the touch. I&D attempted in ED with minimal drainage. Bacitracin applied to I&D site and covered with non-adherent pad secured with gauze and tape. Pt is A&Ox3 VSS, afebrile Independent feeds and ambulation. 22g to L hand. Pt with PMH of Diabetes--she reports her blood glucose is well controlled.
--- NOTE | 2025-02-09 16:29 | PHA.MEDREC ---
Pharmacy Consult ? Medication Reconciliation Pharmacy has completed the medication reconciliation. Spoke to patient at bedside, she was able to confirm her meds verbally.
--- NOTE | 2025-02-09 17:00 | PC.NURSE ---
belongings list completed, in pt chart
--- NOTE | 2025-02-09 17:01 | PM.IMHP ---
History of Present Illness Date of Service: 02/09/25 Attending physician on admission: Douglas Ordonez Chief Complaint: cellulitis 39y/o f with pmhx of diabetes came with concerns of skin infection to posterior right thigh. Patient states that her symptoms started approximately 1 week ago, went to walk-in clinic on February 04 for this, and was started on Bactrim, then on February 06 and was switched to amoxicillin and doxycycline. She has been taking these antibiotics which has provided her without any relief. She does report that the swelling has improved however reports that there appearance of it has changed, now has multiple areas of white dots throughout the area. She denies any fevers, she does endorse some chills. She does reports the area drains slightly throughout the day. labs imaging reviewed: ESR is 33, CRP: 3.2 Soft tissue ultrasound of right leg ordered. Patient patient received vanco and Zosyn in the emergency room and admission was requested for failed antibiotic therapy for cellulitis. Review of Systems Review of Systems: As above. Yes all other systems are reviewed and are negative [facility] Medical History Abscess of skin and subcutaneous tissue Elevated sed rate Elevated C-reactive protein (CRP) Arthralgia Generalized body aches Family History Mother Arthritis Diabetes Vascular abnormality Surgical History Hx of cholecystectomy Social History Housing: Apartment Alcohol intake: current Alcohol intake frequency: holidays/special occasions only Patient Tobacco Use Status: Never used Tobacco e-Cigarette/Vaping Use: Never Used Advance Directives: No Advance Directives Information Provided: Yes Patient : No service: No Current occupational status: employed Cognitive needs: No Hearing needs: No Vision needs: No Meds Allergies Allergy/AdvReac Type Severity Reaction Status Date / Time lisinopril Allergy Mild Weakness Verified 02/09/25 12:08 metformin AdvReac Mild Dizziness Verified 02/09/25 12:08 Active Medications: Current Medications Acetaminophen (Acetaminophen 325 Mg Tablet) 650 mg PO Q6H PRN PRN Reason: Pain, Mild 1-3,fever,headache Calcium Carbonate (Calcium Carbonate 750 Mg Tab.Chew) 750 mg PO Q4H PRN PRN Reason: Heartburn Dextrose (Dextrose 50 % 25 Gm/50 Ml Syringe) 25 gm IVPUSH Q15M PRN; Protocol PRN Reason: per Hypoglycemia Standing Ord. Enoxaparin Sodium (Enoxaparin Sodium 40 Mg/0.4 Ml Syringe) 40 mg SUBCUT Q24H [place] Glucose (Glucose Gel 15 Gm Gel..Gram.) 15 gm PO Q15M PRN; Protocol PRN Reason: per Hypoglycemia Standing Ord. Piperacillin Sod/Tazobactam (Sod 3.375 gm/ Sodium Chloride) 50 mls @ 100 mls/hr IV Q6H F[place] Vancomycin HCl 1,250 mg/ (Sodium Chloride) 250 mls @ 166.667 mls/hr IV Q12H [place] Insulin Human Lispro (Insulin Lispro 100 Unit/Ml 3 Ml Vial) 0 unit SUBCUT QIDACHS [facility]; Protocol Magnesium Hydroxide (Milk Of Magnesia 30 Ml Oral.Susp) 30 ml PO DAILY PRN PRN Reason: Constipation Melatonin (Melatonin 3 Mg Tablet) 6 mg PO BEDTIME PRN PRN Reason: Insomnia Pharmacy Consult (Consult Rx Vancomycin Dosing) 1 each MISCELLANE DAILY PRN PRN Reason: Consult order Sodium Chloride (0.9 % Sodium Chloride Flush 3 Ml Syringe) [facility] Last Admin: 02/09/25 16:05 Dose: Not Given Physical Exam Vital Signs and Narrative: Vital Signs: Last Vital Signs Temp 98.4 F 02/09/25 12:04 Pulse 71 02/09/25 12:04 Resp 18 02/09/25 12:04 BP 144/65 H 02/09/25 12:04 Pulse Ox 98 02/09/25 12:04 O2 Del Method Room Air 02/09/25 12:04 BMI result Body Mass Index 28.6 Appearance: Alert.? Oriented X3.? not in distress.? Eyes: Pupils equal, round and reactive to light.? Sclera nonicteric.? ENT: Pharynx normal.? Moist mucous membranes. cvs: rrr, [id number]. res: clear to auscultation ,no rhonchii or wheezing abd: no rebound or guarding ,nt, bs present. ext pulses present , no cyanosis. right thigh posterior area: ? Abscess/cellulitis-area is draining clean what watery discharge, has area of erythema and swelling around it. neuro: axo3 , nonfocal. Results Labs 02/09/25 12:30 02/09/25 12:30 Labs: Laboratory Results - last 24 hr 02/09/25 12:30 MCV 85.2 MCH 27.5 MCHC 32.3 RDW 12.1 Plt Count 371 D MPV 10.0 Immature Gran % (Auto) 0.2 Neut % (Auto) 67.3 Lymph % (Auto) 24.3 [place] % (Auto) 6.1 Eos % (Auto) 1.3 Baso % (Auto) 0.8 Lymph # (Auto) 2.1 [place] # (Auto) 0.5 Eos # (Auto) 0.1 Baso # (Auto) 0.1 Abs Immat Gran (auto) 0.02 Absolute Neuts (auto) 5.8 Absolute Nucleated RBC 0.000 Nucleated RBC % (auto) 0.0 ESR 33 H Anion Gap 13 Estim Creat Clear Calc 119.3 Estimated GFR > 60 Random Glucose 102 Calcium 8.9 Total Bilirubin 0.3 AST 13 ALT 10 Alkaline Phosphatase 91 C-Reactive Protein 3.20 H Total Protein 7.2 Albumin 4.2 Assessment and Plan (1) Diabetes: Qualifiers: Diabetes mellitus type: other specified (including SONNY) Diabetes mellitus terminal system operator insulin use: without terminal system operator use Diabetes mellitus complication status: with other specified complication Qualified Code(s): E13.69 - Other specified diabetes mellitus with other specified complication Status: Acute (2) Cellulitis: Qualifiers: Site of cellulitis: unspecified site Qualified Code(s): L03.90 - Cellulitis, unspecified Status: Acute Plan 39y/o f with pmhx of diabetes came with concerns of skin infection to posterior right thigh. Patient states that her symptoms started approximately 1 week ago, went to walk-in clinic on February 04 for this, and was started on Bactrim, then on February 06 and was switched to amoxicillin and doxycycline. Right posterior thigh cellulitis/abscess-draining Failed 2 different antibiotics treatment outpatient WBC count 15.7 Blood culture and leg cultures sent by ED Continue vanco/Zosyn ? Diabetic: Unclear if she is diabetic versus prediabetic Hemoglobin A1c Fingerstick with sliding scale coverage DVT prophylaxis with subQ Lovenox Patient will benefit from 2 midnight stay considering right posterior thigh cellulitis cellulitis and abscess possible-need IV antibiotics since failed outpatient p.o. antibiotic therapy-monitor renal function electrolytes outpatient Quality Stroke Does the patient have a stroke diagnosis?: No VTE Prior VTE?: No VTE Risk Level:: Medical - moderate - high VTE Device Contraindication: N/A - Device Ordered VTE Drug Contraindication: N/A - Med Ordered
--- NOTE | 2025-02-09 17:22 | PC.NURSE ---
nurse called to pt exam room, complains of full body itching with vanco infusion. IV site asymptomatic, no throat ithing or tongue swelling, speaking in full sentances. infusion stopped. notified via [employer] connect
--- NOTE | 2025-02-09 17:26 | PC.NURSE ---
Per MD Ordonez pt to have benadryl, and fluids. rate of vanco decreased to 200ml/hour.
[2025-02-09 17:55] LABS: Hemoglobin A1C 108.1185 umol/L; Total Hemoglobin (HGBA1C) 3112.6578 umol/L
[2025-02-09 18:15] VITALS: BP 121/66; PULSE 67; RESP 18; TEMP 36.6; O2SAT 100
[2025-02-09] MEDS: Lactated Ringers 1,000 ML 80 ML IVCONT (18:18)
--- NOTE | 2025-02-09 18:20 | PC.NURSE ---
Patient arrived to unit with IV Vancomycin infusing in IV on left hand. Patient reported to nurse of itching on left arm, upon assessment left arm had red spots noted. Vancomycin stopped, Aliya Guzman notified via [employer] at 18:05 and provider came to bedside at 18:14 to assess patient. Provider discontinued IV Vancomycin. Redness decreased and patient reporting itching was improving.
[2025-02-09 18:21] VITALS: BMI 30.5
[2025-02-09 18:31] LABS: Glucose, Whole Blood 70 mg/dL (60-115)
[2025-02-09 19:07] LABS: Alanine Aminotransferase < 6 U/L (0-31); Albumin Level 3.4 g/dL (3.5-5.0); Alkaline Phosphatase 82 U/L (39-117); Anion Gap 16 (12-20); Aspartate Amino Transferase 16 U/L (5-31); Blood Urea Nitrogen 8 mg/dL (9-16); Calcium 8.5 mg/dL (8.4-10.2); Carbon Dioxide 19 mmol/L (22-29); Chloride 108 mmol/L (96-108); Creatinine Clr Calc Pharmacy 135.2; Estimated Glomerular Filt Rate > 60; Potassium 3.6 mmol/L (3.3-5.1); Sodium 139 mmol/L (135-145); Total Protein 6.5 g/dL (6.5-8.0)
--- NOTE | 2025-02-09 19:19 | HO.SKINPHOTO ---
Patient arrived to unit from ED - ultrasound at bedside. Gauze and tape dressing removed for endoscopic technician. After ultrasound, area cleaned with saline and pat dry. Non-adherent gauze and tegaderm placed. Location: In photo ultrasound gel is present.
[2025-02-09 20:00] VITALS: BP 114/65; PULSE 72; RESP 18; TEMP 36.1; O2SAT 98
[2025-02-09] MEDS: Linezolid/D5W 600 MG/300 ML PIGGYBACK 300 MG IV (20:04)
[2025-02-09 21:30] LABS: Glucose, Whole Blood 129 mg/dL (60-115)
[2025-02-10 03:17] VITALS: BP 101/58; PULSE 77; RESP 16; TEMP 36.3; O2SAT 97
[2025-02-10 06:16] LABS: MANUAL DIFF FLAG NO
[2025-02-10 06:17] LABS: Hematocrit 34.7 % (37.0-47.0); Hemoglobin 11.3 g/dl (12.0-16.0); Imm Gran Abs Auto 0.03 X10*3/uL (0.00-0.03); Imm Gran Pct Auto 0.4 % (0.0-0.4); Lymphocytes Absolute Auto 2.2 X10*3/uL (1.2-4.9); Mean Corpuscular HGB Conc 32.6 g/dl (31.0-35.0); Mean Corpuscular Hemoglobin 27.6 pg (27.0-33.0); Mean Corpuscular Volume 84.6 fL (80.0-98.0); NRBC Abs Auto 0.000 X10*3/uL (0.0-0.012); NRBC Pct Auto 0.0 /100WBC (0.0-0.2); Platelet Count 314 X10*3/uL (160-400); Red Blood Count 4.10 X10*6/uL (4.20-5.50); White Blood Count 8.5 X10*3/uL (4.8-10.8)
[2025-02-10 06:54] LABS: Blood Urea Nitrogen 11 mg/dL (9-16); Calcium 8.5 mg/dL (8.4-10.2); Creatinine Clr Calc Pharmacy 126.9; Estimated Glomerular Filt Rate > 60
[2025-02-10] MEDS: Linezolid/D5W 600 MG/300 ML PIGGYBACK 300 MG IV ×2 (07:26→19:16)
[2025-02-10] MEDS: Lactated Ringers 1,000 ML 80 ML IVCONT ×2 (07:27→22:21)
[2025-02-10 07:38] LABS: Anion Gap 11 (12-20); Carbon Dioxide 27 mmol/L (22-29); Chloride 107 mmol/L (96-108); Potassium 4.1 mmol/L (3.3-5.1); Sodium 141 mmol/L (135-145)
[2025-02-10 07:49] LABS: Glucose, Whole Blood 113 mg/dL (60-115)
--- NOTE | 2025-02-10 07:50 | P.PNIM_ITS ---
Subjective Subjective Date of Service: 02/10/25 Interval History: celuliitis /abcess Review of Systems sono leg-possible developing abcess no fevers Review of Systems: Yes all other systems are reviewed and are negative Physical Exam 2 Exam: Exam: Appearance: Alert.? Oriented X3.? not in distress.? Eyes: Pupils equal, round and reactive to light.? Sclera nonicteric.? ENT: Pharynx normal.? Moist mucous membranes. cvs: rrr, [id number]. res: clear to auscultation ,no rhonchii or wheezing abd: no rebound or guarding ,nt, bs present. ext pulses present , no cyanosis. right thigh posterior area: ? Abscess/cellulitis-area is draining clean what watery discharge, has area of erythema and swelling around it. neuro: axo3 , nonfocal. Vital Signs: Vital Signs: Last Vital Signs Temp 97.4 F 02/10/25 03:17 Pulse 77 02/10/25 03:17 Resp 16 02/10/25 03:17 BP 101/58 L 02/10/25 03:17 Pulse Ox 97 02/10/25 03:17 O2 Del Method Room Air 02/10/25 03:17 BMI result Body Mass Index 30.5 Objective Data Active Medications Acetaminophen (Acetaminophen 325 Mg Tablet) 650 mg PO Q6H PRN PRN Reason: Pain, Mild 1-3,fever,headache Calcium Carbonate (Calcium Carbonate 750 Mg Tab.Chew) 750 mg PO Q4H PRN PRN Reason: Heartburn Dextrose (Dextrose 50 % 25 Gm/50 Ml Syringe) 25 gm IVPUSH Q15M PRN; Protocol PRN Reason: per Hypoglycemia Standing Ord. Diphenhydramine HCl (Diphenhydramine Hcl 25 Mg Capsule) 25 mg PO Q6H PRN PRN Reason: itchiness Enoxaparin Sodium (Enoxaparin Sodium 40 Mg/0.4 Ml Syringe) 40 mg SUBCUT Q24H [facility] Last Admin: 02/09/25 17:03 Dose: Not Given Documented By: DAYDAY Non-Admin Reason: Patient Condition Contraindication Glucose (Glucose Gel 15 Gm Gel..Gram.) 15 gm PO Q15M PRN; Protocol PRN Reason: per Hypoglycemia Standing Ord. Piperacillin Sod/Tazobactam (Sod 3.375 gm/ Sodium Chloride) 50 mls @ 100 mls/hr IV Q6H [facility] Last Infusion: 02/10/25 03:50 Dose: Infused Documented By: CLYDE Lactated Ringer's (Lr) 1,000 mls @ 80 mls/hr IVCONT .[id number] [facility] Last Admin: 02/10/25 07:27 Dose: 80 mls/hr Documented By: CHANTELLE Linezolid (Zyvox/D5w) 600 mg in 300 mls @ 300 mls/hr IV Q12H [facility] Last Admin: 02/10/25 07:26 Dose: 300 mls/hr Documented By: CHANTELLE Insulin Human Lispro (Insulin Lispro 100 Unit/Ml 3 Ml Vial) 0 unit SUBCUT QIDACHS [facility]; Protocol Last Admin: 02/09/25 21:36 Dose: Not Given Documented By: CLYDE Non-Admin Reason: No Insulin Coverage Comments: POC 129 Magnesium Hydroxide (Milk Of Magnesia 30 Ml Oral.Susp) 30 ml PO DAILY PRN PRN Reason: Constipation Melatonin (Melatonin 3 Mg Tablet) 6 mg PO BEDTIME PRN PRN Reason: Insomnia Non-Formulary Medication (Tirzepatide) 5 mg SUBCUT QWEEK [facility] Sodium Chloride (0.9 % Sodium Chloride Flush 3 Ml Syringe) 3 ml IVFLUSH QSHIFT [facility] Last Admin: 02/10/25 07:30 Dose: Not Given Documented By: CHANTELLE Non-Admin Reason: IV Running Labs 02/10/25 05:45 02/10/25 05:45 Labs: Laboratory Results - last 24 hr 02/09/25 02/09/25 02/09/25 12:30 18:17 18:28 MCV 85.2 MCH 27.5 MCHC 32.3 RDW 12.1 Plt Count 371 D MPV 10.0 Immature Gran % (Auto) 0.2 Neut % (Auto) 67.3 Lymph % (Auto) 24.3 [place] % (Auto) 6.1 Eos % (Auto) 1.3 Baso % (Auto) 0.8 Lymph # (Auto) 2.1 [place] # (Auto) 0.5 Eos # (Auto) 0.1 Baso # (Auto) 0.1 Abs Immat Gran (auto) 0.02 Absolute Neuts (auto) 5.8 Absolute Nucleated RBC 0.000 Nucleated RBC % (auto) 0.0 ESR 33 H Anion Gap 13 16 Estim Creat Clear Calc 119.3 135.2 Estimated GFR > 60 > 60 POC Glucose 70 Random Glucose 102 75 Estimat Average Glucose 105 Hemoglobin A1c % 5.3 Calcium 8.9 8.5 Total Bilirubin 0.3 0.2 AST 13 16 ALT 10 < 6 Alkaline Phosphatase 91 82 C-Reactive Protein 3.20 H Total Protein 7.2 6.5 Albumin 4.2 3.4 L 02/09/25 02/10/25 02/10/25 21:19 05:45 07:45 MCV 84.6 MCH 27.6 MCHC 32.6 RDW 12.0 Plt Count 314 MPV 9.8 Immature Gran % (Auto) 0.4 Neut % (Auto) 63.4 Lymph % (Auto) 26.3 [place] % (Auto) 6.9 Eos % (Auto) 2.1 Baso % (Auto) 0.9 Lymph # (Auto) 2.2 [place] # (Auto) 0.6 Eos # (Auto) 0.2 Baso # (Auto) 0.1 Abs Immat Gran (auto) 0.03 Absolute Neuts (auto) 5.4 Absolute Nucleated RBC 0.000 Nucleated RBC % (auto) 0.0 ESR Anion Gap 11 L Estim Creat Clear Calc 126.9 Estimated GFR > 60 POC Glucose 129 H 113 Random Glucose 119 H Estimat Average Glucose Hemoglobin A1c % Calcium 8.5 Total Bilirubin AST ALT Alkaline Phosphatase C-Reactive Protein Total Protein Albumin Assessment and Plan (1) Diabetes: Status: Acute (2) Cellulitis: Status: Acute Plan 39y/o f with pmhx of diabetes came with concerns of skin infection to posterior right thigh. Patient states that her symptoms started approximately 1 week ago, went to walk-in clinic on February 04 for this, and was started on Bactrim, then on February 06 and was switched to amoxicillin and doxycycline. Right posterior thigh cellulitis/abscess-draining Failed 2 different antibiotics treatment outpatient has pain/swelling similar ,us shows developing abcess Blood culture and leg cultures sent by ED Continue vanco/Zosyn Diabetic: she said she has dm ? type 2: on majarno per pcp Hemoglobin A1c 5.3 Fingerstick with sliding scale coverage DVT prophylaxis with subQ Lovenox ongoing need for stay:Right posterior thigh cellulitis/cazbrer-[id number]-vbrjhi outpatient antibiotics -need iv antibiotics /cultures pending Quality Stroke Does the patient have a stroke diagnosis?: No VTE Prior VTE?: No VTE Risk Level:: Medical - moderate - high VTE Device Contraindication: N/A - Device Ordered VTE Drug Contraindication: N/A - Med Ordered
[2025-02-10 08:00] VITALS: BP 101/55; PULSE 73; RESP 18; TEMP 36; O2SAT 98
--- NOTE | 2025-02-10 09:26 | HO.SKINPHOTO ---
Dr. Silva came to bedside and assessed wound on posterior right thigh. Moderate blood/cream drainage present on old dressing. Provider changed dressing and placed fluff gauze and paper tape.
--- NOTE | 2025-02-10 10:04 | P.CONGS_ITS ---
History of Present Illness Consult details Consult date: 02/10/25 Requesting physician: Douglas Ordonez Narrative: 39-year-old female patient with a history of diabetes presenting with an open wound of the posterior right thigh which began on Tuesday as a small pimple. She tried applying warm compresses but subsequently noted the lesion to increase in size with surrounding redness. She was seen in the walk-in clinic and started on p.o. Bactrim. After 2 days the wound did not improve and she subsequently returned to the walk-in clinic and was placed on amoxicillin and doxycycline. Despite this she continued to have developed increased redness and pain along with swelling in the posterior calf. She subsequently presented to the emergency department for further evaluation. An incision and drainage was performed last evening with no significant abscess drained. She was admitted to the hospitalist service and placed on linezolid and Zosyn. This morning she does report feeling somewhat improved. She is unaware of any injury, insect bite or prior history of similar lesions. Review of Systems 2 Review of Systems: Yes all other systems are reviewed and are negative PMFSH Past Medical History Medical History Abscess of skin and subcutaneous tissue Elevated sed rate Elevated C-reactive protein (CRP) Arthralgia Generalized body aches Family History Family History Mother Arthritis Diabetes Vascular abnormality Surgical History Surgical History Hx of cholecystectomy Social History Social History Household Members: Significant Other and Children Housing: Apartment Do you presently have visiting nurse or other home services: No Alcohol intake: current Alcohol intake frequency: holidays/special occasions only Patient Tobacco Use Status: Never used Tobacco e-Cigarette/Vaping Use: Never Used service: No Current occupational status: employed Cognitive needs: No Hearing needs: No Vision needs: No Meds Allergies Allergy/AdvReac Type Severity Reaction Status Date / Time lisinopril Allergy Mild Weakness Verified 02/09/25 12:08 vancomycin Allergy Mild Itching Verified 02/09/25 19:26 metformin AdvReac Mild Dizziness Verified 02/09/25 12:08 Active Medications: Current Medications Acetaminophen (Acetaminophen 325 Mg Tablet) 650 mg PO Q6H PRN PRN Reason: Pain, Mild 1-3,fever,headache Calcium Carbonate (Calcium Carbonate 750 Mg Tab.Chew) 750 mg PO Q4H PRN PRN Reason: Heartburn Dextrose (Dextrose 50 % 25 Gm/50 Ml Syringe) 25 gm IVPUSH Q15M PRN; Protocol PRN Reason: per Hypoglycemia Standing Ord. Diphenhydramine HCl (Diphenhydramine Hcl 25 Mg Capsule) 25 mg PO Q6H PRN PRN Reason: itchiness Enoxaparin Sodium (Enoxaparin Sodium 40 Mg/0.4 Ml Syringe) 40 mg SUBCUT Q24H [facility] Last Admin: 02/09/25 17:03 Dose: Not Given Glucose (Glucose Gel 15 Gm Gel..Gram.) 15 gm PO Q15M PRN; Protocol PRN Reason: per Hypoglycemia Standing Ord. Piperacillin Sod/Tazobactam (Sod 3.375 gm/ Sodium Chloride) 50 mls @ 100 mls/hr IV Q6H [facility] Last Admin: 02/10/25 09:56 Dose: 100 mls/hr Lactated Ringer's (Lr) 1,000 mls @ 80 mls/hr IVCONT .[id number] [facility] Last Admin: 02/10/25 07:27 Dose: 80 mls/hr Linezolid (Zyvox/D5w) 600 mg in 300 mls @ 300 mls/hr IV Q12H [facility] Last Infusion: 02/10/25 08:26 Dose: Infused Insulin Human Lispro (Insulin Lispro 100 Unit/Ml 3 Ml Vial) 0 unit SUBCUT QIDACHS [facility]; Protocol Last Admin: 02/10/25 07:59 Dose: Not Given Magnesium Hydroxide (Milk Of Magnesia 30 Ml Oral.Susp) 30 ml PO DAILY PRN PRN Reason: Constipation Melatonin (Melatonin 3 Mg Tablet) 6 mg PO BEDTIME PRN PRN Reason: Insomnia Non-Formulary Medication (Tirzepatide) 5 mg SUBCUT QWEEK [facility] Sodium Chloride (0.9 % Sodium Chloride Flush 3 Ml Syringe) 3 ml IVFLUSH QSHIFT [facility] Last Admin: 02/10/25 07:30 Dose: Not Given Physical Exam 2 Vital Signs: Vital Signs: Last Vital Signs Temp 96.8 F 02/10/25 08:00 Pulse 73 02/10/25 08:00 Resp 18 02/10/25 08:00 BP 101/55 L 02/10/25 08:00 Pulse Ox 98 02/10/25 08:00 O2 Del Method Room Air 02/10/25 08:00 BMI result Body Mass Index 30.5 Const: General: cooperative and no acute distress Nutritional Appearance: w ell nourished Orientation/consciousness: patient oriented x3 Limitations: no limitations HEENT: Head: Yes normocephalic and Yes atraumatic Ears: hearing grossly normal bilaterally Resp: Effort & Inspection: normal respiratory effort, no audible wheezes, no cough and no respiratory distress Cardio: Jugular venous distension: no JVD GI: Inspection: Yes normal to inspection Skin: Other: Warm, dry, no rash Neuro: General: patient oriented x3 Extrem: General: Yes no clubbing, cyanosis or edema Upper/lower leg/hip images: 1. 2 cm open wound with surrounding erythema, induration but no fluctuance noted. Dry sterile dressings applied. Results Labs 02/10/25 05:45 02/10/25 05:45 Labs: Abnormal lab results 02/09/25 02/09/25 02/09/25 Range/Units 12:30 18:28 21:19 RBC (4.20-5.50) X10*6/uL Hgb (12.0-16.0) g/dl Hct (37.0-47.0) % ESR 33 H (0-20) MM/HR Carbon Dioxide 19 L (22-29) mmol/L Anion Gap (12-20) BUN 8 L (9-16) mg/dL POC Glucose 129 H (60-115) mg/dL Random Glucose (60-115) mg/dL C-Reactive Protein 3.20 H (< or = 0.50) mg/dL Albumin 3.4 L (3.5-5.0) g/dL 02/10/25 Range/Units 05:45 RBC 4.10 L (4.20-5.50) X10*6/uL Hgb 11.3 L (12.0-16.0) g/dl Hct 34.7 L (37.0-47.0) % ESR (0-20) MM/HR Carbon Dioxide (22-29) mmol/L Anion Gap 11 L (12-20) BUN (9-16) mg/dL POC Glucose (60-115) mg/dL Random Glucose 119 H (60-115) mg/dL C-Reactive Protein (< or = 0.50) mg/dL Albumin (3.5-5.0) g/dL Short CBC 02/09/25 02/10/25 Range/Units 12:30 05:45 WBC 8.6 8.5 (4.8-10.8) X10*3/uL Hgb 12.3 11.3 L (12.0-16.0) g/dl Hct 38.1 34.7 L (37.0-47.0) % Plt Count 371 D 314 (160-400) X10*3/uL BMP 02/09/25 02/09/25 02/10/25 12:30 18:28 05:45 Sodium 141 139 141 Potassium 3.8 3.6 4.1 Chloride 106 108 107 Carbon Dioxide 26 19 L 27 BUN 10 8 L 11 Creatinine 0.67 0.61 0.65 Calcium 8.9 8.5 8.5 Liver Function 02/09/25 02/09/25 Range/Units 12:30 18:28 Total Bilirubin 0.3 0.2 (0.0-1.0) mg/dL AST 13 16 (5-31) U/L ALT 10 < 6 (0-31) U/L Alkaline Phosphatase 91 82 (39-117) U/L Albumin 4.2 3.4 L (3.5-5.0) g/dL All other labs normal. Assessment and Plan (1) Cellulitis and abscess of leg: Status: Acute Plan 39-year-old female patient presenting with an open wound with surrounding cellulitis located in the posterior right thigh. Findings are suggestive of possible insect bite with subsequent skin necrosis perhaps spider bite. Agree with antibiotic and local wound care. Suggest wound care nurse consult tomorrow. We will continue to monitor during her hospitalization. Procedures Date of Service Date of Service: 02/10/25
--- NOTE | 2025-02-10 10:37 | MHC.CM.PN ---
PT LIVES WITH FAMILY IS INDEPDENT CAR IN LOT DC PLAN HOME N/S
[2025-02-10 11:47] LABS: Glucose, Whole Blood 95 mg/dL (60-115)
[2025-02-10 15:32] VITALS: BP 111/72; PULSE 71; RESP 18; TEMP 36.3; O2SAT 97
[2025-02-10 16:02] LABS: Glucose, Whole Blood 96 mg/dL (60-115)
[2025-02-10 20:00] VITALS: BP 117/64; PULSE 80; RESP 16; TEMP 36.1; O2SAT 96
[2025-02-10 21:15] LABS: Glucose, Whole Blood 90 mg/dL (60-115)
[2025-02-11] MEDS: Lactated Ringers 1,000 ML 999 ML IV (03:07)
[2025-02-11 03:34] VITALS: BP 95/53; PULSE 67; RESP 17; TEMP 36; O2SAT 97
--- NOTE | 2025-02-11 04:39 | PC.NURSE ---
Pt BP was 95/53 at approx 0300 Pt non symptomatic and other vital signs WNL. This rn notified TANI Bowers and was given an order for a Liter of fluids, given per JUN. Pt resting comfortably in bed and BP was 98/54 at approx 0430. Will continue to monitor pt.
[2025-02-11 04:50] VITALS: BP 98/54
[2025-02-11 07:43] LABS: Glucose, Whole Blood 94 mg/dL (60-115)
[2025-02-11] MEDS: Linezolid/D5W 600 MG/300 ML PIGGYBACK 300 MG IV (07:54)
[2025-02-11 08:00] VITALS: BP 118/67; PULSE 72; RESP 18; TEMP 36.4; O2SAT 96
--- NOTE | 2025-02-11 08:14 | PM.PNGS ---
Subjective Subjective Date of Service: 02/11/25 Interval history: Patient feeling much improved with decreased pain and redness Physical Exam Vital Signs: Vital Signs: Last Vital Signs Temp 97.6 F 02/11/25 08:00 Pulse 72 02/11/25 08:00 Resp 18 02/11/25 08:00 BP 118/67 02/11/25 08:00 Pulse Ox 96 02/11/25 08:00 O2 Del Method Room Air 02/11/25 08:00 BMI result Body Mass Index 30.5 Const: General: cooperative and no acute distress Nutritional Appearance: well nourished Orientation/consciousness: patient oriented x3 Limitations: no limitations HEENT: Head: Yes normocephalic and Yes atraumatic Ears: hearing grossly normal bilaterally Resp: Effort & Inspection: normal respiratory effort, no audible wheezes, no cough and no respiratory distress Cardio: Jugular venous distension: no JVD GI: Inspection: Yes normal to inspection Skin: Other: Warm, dry, no rash Neuro: General: patient oriented x3 Extrem: Other: Right leg wound open and draining. Cellulitis much improved, no tenderness to palpation. General: Yes no clubbing, cyanosis or edema Objective Data Active Medications Acetaminophen (Acetaminophen 325 Mg Tablet) 650 mg PO Q6H PRN PRN Reason: Pain, Mild 1-3,fever,headache Last Admin: 02/10/25 22:19 Dose: 650 mg Documented By: LEFEBBO Calcium Carbonate (Calcium Carbonate 750 Mg Tab.Chew) 750 mg PO Q4H PRN PRN Reason: Heartburn Dextrose (Dextrose 50 % 25 Gm/50 Ml Syringe) 25 gm IVPUSH Q15M PRN; Protocol PRN Reason: per Hypoglycemia Standing Ord. Diphenhydramine HCl (Diphenhydramine Hcl 25 Mg Capsule) 25 mg PO Q6H PRN PRN Reason: itchiness Enoxaparin Sodium (Enoxaparin Sodium 40 Mg/0.4 Ml Syringe) 40 mg SUBCUT Q24H [facility] Last Admin: 02/10/25 15:31 Dose: 40 mg Documented By: COLBURK Glucose (Glucose Gel 15 Gm Gel..Gram.) 15 gm PO Q15M PRN; Protocol PRN Reason: per Hypoglycemia Standing Ord. Piperacillin Sod/Tazobactam (Sod 3.375 gm/ Sodium Chloride) 50 mls @ 100 mls/hr IV Q6H [facility] Last Infusion: 02/11/25 03:09 Dose: Infused Documented By: JAMEY Lactated Ringer's (Lr) 1,000 mls @ 80 mls/hr IVCONT .[id number] [facility] Last Infusion: 02/11/25 04:15 Dose: 80 mls/hr Documented By: JAMEY Linezolid (Zyvox/D5w) 600 mg in 300 mls @ 300 mls/hr IV Q12H [facility] Last Admin: 02/11/25 07:54 Dose: 300 mls/hr Documented By: MEGAN Insulin Human Lispro (Insulin Lispro 100 Unit/Ml 3 Ml Vial) 0 unit SUBCUT QIDACHS [facility]; Protocol Last Admin: 02/11/25 07:51 Dose: Not Given Documented By: MEGAN Non-Admin Reason: No Insulin Coverage Magnesium Hydroxide (Milk Of Magnesia 30 Ml Oral.Susp) 30 ml PO DAILY PRN PRN Reason: Constipation Melatonin (Melatonin 3 Mg Tablet) 6 mg PO BEDTIME PRN PRN Reason: Insomnia Non-Formulary Medication (Tirzepatide) 5 mg SUBCUT QWEEK [facility] Sodium Chloride (0.9 % Sodium Chloride Flush 3 Ml Syringe) 3 ml IVFLUSH QSHIFT [facility] Last Admin: 02/11/25 07:52 Dose: Not Given Documented By: MEGAN Non-Admin Reason: IV Running Labs 02/10/25 05:45 02/10/25 05:45 Labs: Laboratory Results - last 24 hr 02/10/25 02/10/25 02/10/25 11:32 15:54 20:53 POC Glucose 95 96 90 02/11/25 07:40 POC Glucose 94 Microbiology Microbiology Results: Microbiology 02/09/25 15:23 Gram Stain - Final Leg - Left Routine Culture - Final Methicillin Res Staph Aureus 02/09/25 15:23 Blood Culture - Preliminary Blood - Venous No growth after 24 hours. 02/09/25 15:23 Blood Culture - Preliminary Blood - Venous No growth after 24 hours. Procedures Date of Service Date of Service: 02/11/25 Progress Note: A&P Assessment and plan (1) Cellulitis and abscess of leg: Status: Acute Plan 39-year-old female patient presenting with a posterior right thigh ulceration with surrounding cellulitis. Patient much improved with parenteral antibiotics. No surgical intervention recommended at this time. Patient may benefit from wound care clinic follow-up for skin ulceration. We will sign off; please reconsult for new concerns. Time Spent With Patient Time: Total time managing care of this patient today ____ minutes. Quality Stroke Does the patient have a stroke diagnosis?: No VTE Prior VTE?: No VTE Risk Level:: Medical - moderate - high VTE Device Contraindication: N/A - Device Ordered VTE Drug Contraindication: N/A - Med Ordered
--- NOTE | 2025-02-11 11:22 | PM.DS ---
DS: Providers Provider Date of Service: 02/11/25 Date of admission: 02/09/25 15:33 Date of discharge: 02/11/25 Primary care physician: AFSHIN Patterson Consults: 02/10/25 07:41 Consult to Infectious Diseases Routine Consulting Provider: [facility] Infect[facility] Reason for consultation: cellulitis /abcess 02/10/25 09:24 Consult to General Surgery Routine Consulting Provider: [facility] General Surgeons Reason for consultation: Right thigh abscess Has provider been notified: No 02/11/25 07:22 Consult to Wound Care Routine Reason for consultation: thigh wound Has provider been notified: No Attending physician on discharge: Douglas Ordonez Discharging clinician: Douglas Ordonez DS: Diagnosis Discharge Diagnosis (1) Cellulitis and abscess of leg: Status: Acute DS: Summary Hospital Course Hospital Course: HPI:39y/o f with pmhx of diabetes came with concerns of skin infection to posterior right thigh. Patient states that her symptoms started approximately 1 week ago, went to walk-in clinic on February 04 for this, and was started on Bactrim, then on February 06 and was switched to amoxicillin and doxycycline. She has been taking these antibiotics which has provided her without any relief. She does report that the swelling has improved however reports that there appearance of it has changed, now has multiple areas of white dots throughout the area. She denies any fevers, she does endorse some chills. She does reports the area drains slightly throughout the day. labs imaging reviewed: ESR is 33, CRP: 3.2 Soft tissue ultrasound of right leg ordered. Patient patient received vanco and Zosyn in the emergency room and admission was requested for failed antibiotic therapy for cellulitis. Hospital course: 39y/o f with pmhx of diabetes came with concerns of skin infection to posterior right thigh. Patient states that her symptoms started approximately 1 week ago, went to walk-in clinic on February 04 for this, and was started on Bactrim, then on February 06 and was switched to amoxicillin and doxycycline. Right posterior thigh cellulitis/abscess-draining: Started on IV antibiotics, blood cultures sent, with the above management patient seems to be improved significantly, erythema areas improving significantly, monitor closely outpatient if patient does not improve in next few days may need outpatient skin biopsy with surgery or consider outpatient appointment dermatology for skin biopsy. Seen by surgery no acute surgical intervention. Wound culture grew MRSA-patient is switched to linezolid since patient did not improve out patiently with doxycycline-Bactrim/Augmentin. Please complete a linezolid cause for 1 week. plan: Linezolid 600 mg p.o. b.i.d. for 1 week. Continue current dressing Follow up with PCP outpatient Above management discussed with the patient detail length she understand and in agreement with the above plan, time spent 45 minute. All questions answered. Time Attestation Total time managing care of this patient today: 45 mintues. Discharge Coordination Time (in mins): 45 min Quality: Safe Use of Opioids Does Pt have an Active Cancer Diagnosis on the Problem List?: No Quality: Stroke Does the patient have a stroke diagnosis?: No Physical Exam Exam: Exam: Appearance: Alert.? Oriented X3.? cvs: rrr, [id number]. res: clear to auscultation ,no rhonchii or wheezing abd: no rebound or guarding ,nt, bs present. ext pulses present , no cyanosis. right thigh posterior area: Erythema and swelling seems to be improved significantly, ambulation is fine. neuro: axo3 , nonfocal. Vital Signs: Vital Signs: Last Vital Signs Temp 97.6 F 02/11/25 08:00 Pulse 72 02/11/25 08:00 Resp 18 02/11/25 08:00 BP 118/67 02/11/25 08:00 Pulse Ox 96 02/11/25 08:00 O2 Del Method Room Air 02/11/25 08:00 BMI result Body Mass Index 30.5 DS: Data Data Completed and Pending Labs on day of discharge: Laboratory Results - last 24 hr 02/10/25 02/10/25 02/10/25 11:32 15:54 20:53 POC Glucose 95 96 90 02/11/25 07:40 POC Glucose 94 Preliminary micro results at discharge 02/09/25 15:23 Blood Culture - Preliminary Blood - Venous No growth after 24 hours. 02/09/25 15:23 Blood Culture - Preliminary Blood - Venous No growth after 24 hours. Imaging Chest x-ray: My impression: US soft tissue: 1. Small loculated pocket of fluid in an area of edema within the right thigh raising the possibility of a developing abscess. Discharge Plan Discharge Anticipated Discharge Date/Time: 02/11/25 11:18 Patient Disposition: Home, Self-Care Discharge Diagnosis: Thigh cellulitis/abscess. Referrals: Olayinka Cleary FNP- [Primary Care Provider, Internal Medicine] - 1 Week Olayinka Silva MD [Physician, General Surgery] - 1 Week Discharge Medications: New linezolid 600 mg Tablet 600 mg PO Q12H Qty: 14 0RF Continued (DME) blood-glucose meter [OneTouch Verio Flex meter] Misc See Rx Instructions .Route Qty: 1 0RF Rx Instructions: As directed (DME) lancets [OneTouch Delica Plus Lancet] 33 gauge misc See Rx Instructions .Route Qty: 100 1RF Rx Instructions: Test blood sugar once a day (DME) OneTouch Verio test strips Strip See Rx Instructions .Route Qty: 100 1RF Rx Instructions: test blood sugar once a day (DME) blood-glucose meter [Accu-Chek Guide Glucose Meter] Misc See Rx Instructions .Route Qty: 1 0RF Rx Instructions: As directed (DME) lancets [Accu-Chek Softclix Lancets] Misc See Rx Instructions .Route Qty: 200 1RF Rx Instructions: Test blood sugar twice a day tirzepatide 5 mg/0.5 mL pen injector 5 mg subcut QWEEK Qty: 2 5RF (DME) Accu-Chek Guide test strips Strip See Rx Instructions .Route Qty: 200 1RF Rx Instructions: Test blood sugar twice a day atorvastatin 10 mg tablet 10 mg PO BEDTIME Qty: 90 1RF Discontinued amoxicillin 875 mg tablet 875 mg PO Q12H Qty: 14 0RF doxycycline hyclate 100 mg tablet 100 mg PO BID Qty: 14 0RF Discharge Orders: Discharge Order (Routine); Ordered 02/11/25 Ordered By: Douglas Ordonez Diet: Advance to usual diet Activity on Discharge: As tolerated Stand Alone Forms: Patient Portal Discharge page Print Language: [place] Citizen Activity Restrictions/Additional Instructions: Topical Wound Care Recommendations: Maintain blood glucose levels per Providers order. Left Posterior Upper Leg - Routine Showering with soap and water. Recommend washing posterior leg with Antibicaterial wash such as Dial or Hibiclense, dry well. Apply Durafiber AG to wound bed cover with foam dressing. Change every other day. Care Plan Goals: as below. Health Concerns: As above. Plan of Treatment: Linezolid 600 mg p.o. b.i.d. for 1 week, monitor cellulitis area closely, if does not to may need outpatient biopsy/follow-up dr kam or consider outpatient dermatology followup. Continue current dressing Follow up with PCP outpatient Assessment: As above.
--- NOTE | 2025-02-11 11:49 | HO.WOUND ---
Wound Consult: Initial 39yr old female admitted to [facility] on 02/09/25- See progress notes and H&P for detailed history.? Wound consult placed for Rigt Posterior Thigh Wound.? Patient agreeable to assessment and photo documentation.?Chart review reveals seen and assessed by surgery no surgical interventions needed at this time - systemic treatment in place for MRSA. Right Posterior Upper Leg Etiology: ?Ulceration - MRSA ? Measurements: 2cm x 3cm x 0.3cm Wound Bed: full thickness tissue loss with re moist edges and adherent fibrinous yellow slough Drainage / Odor: serous drainage no odor Edges: ? well defined Marge wound: warmth, induraiton and erythema noted - per patient significant improved since admission and ABX started. Pain: tenderness to touch Goals of Treatment: ? Topical treatment with durafiber AG Recommendations: Maintain blood glucose levels per Providers order. Left Posterior Upper Leg - Routine Showering with soap and water. Recommend washing posterior leg with Antibicaterial wash such as Dial or Hibiclense, dry well. Apply Durafiber AG to wound bed cover with foam dressing. Change every other day. Re-consult wound care Nurse for wound deterioration or wound changes.
[2025-02-11 12:00] LABS: Glucose, Whole Blood 94 mg/dL (60-115)
--- NOTE | 2025-02-11 12:21 | MHC.CM.PN ---
Patientis discharged to home self care. She has arranged for private transport home.
--- NOTE | 2025-02-11 14:46 | P.CNID_ITS ---
History of Present Illness Data of Consult Service Date: 02/11/25 Requesting physician: Douglas Ordonez Primary Care Provider: AFSHIN Patterson HPI Reason for consult: right thigh ulcer She presents with right thigh 2 x3 cm redness and pimple area that popped She has symptoms for five days. She started Bactrim on 02/04 and no better and then Augmentin and Doxycycline outpatient and noticed area spreading late She was started on linezolid containing combination and improved. Review of Systems 2 Review of Systems: Yes all other systems are reviewed and are negative [facility] Past Medical History Medical History (Updated 02/11/25 @ 14:51 by Jacquelyn Longoria MD) MRSA (methicillin resistant staph aureus) culture positive Abscess of skin and subcutaneous tissue Elevated sed rate Elevated C-reactive protein (CRP) Arthralgia Generalized body aches Family History Family History Mother Arthritis Diabetes Vascular abnormality Family history: reviewed and not pertinent Surgical History Surgical History Hx of cholecystectomy Social History Social History Household Members: Significant Other and Children Housing: Apartment Do you presently have visiting nurse or other home services: No Alcohol intake: current Alcohol intake frequency: holidays/special occasions only Patient Tobacco Use Status: Never used Tobacco e-Cigarette/Vaping Use: Never Used service: No Current occupational status: employed Cognitive needs: No Hearing needs: No Vision needs: No Meds Allergies Allergy/AdvReac Type Severity Reaction Status Date / Time lisinopril Allergy Mild Weakness Verified 02/09/25 12:08 vancomycin Allergy Mild Itching Verified 02/09/25 19:26 metformin AdvReac Mild Dizziness Verified 02/09/25 12:08 Physical Exam 2 Vital Signs: Vital Signs: Last Vital Signs Temp 97.6 F 02/11/25 08:00 Pulse 72 02/11/25 08:00 Resp 18 02/11/25 08:00 BP 118/67 02/11/25 08:00 Pulse Ox 96 02/11/25 08:00 O2 Del Method Room Air 02/11/25 08:00 BMI result Body Mass Index 30.5 Const: General: cooperative HEENT: Head: Yes normal to inspection Face and sinus: Yes normal facial exam Mouth: Normal oral and palatal mucosa present Teeth and gingiva: d entition normal Eyes: General: appearance normal, both eyes and all related structures P upils: Equal, round and reactive pupils present Resp: Effort & Inspection: normal respiratory effort Cardio: Rate: regular rate Rhythm: regular rhythm GI: Palpation (GI): Soft to palpation and nontender : General: Yes no CVA tenderness Back/Spine/Pelvis: Back: no CVA tenderness Skin: General skin exam: no rashes or lesions noted Neuro: General: moves all extremities Cranial nerves: Yes Equal, round and reactive pupils present Extrem: Other: posterior thigh 3 cm lesion beefy red General: Yes normal to inspection Psych: Appearance: grossly normal Results Labs 02/10/25 05:45 02/10/25 05:45 Microbiology Microbiology Results: Microbiology 02/09/25 15:23 Leg - Left Gram Stain - Final 02/09/25 15:23 Leg - Left Routine Culture - Final Methicillin Res Staph Aureus 02/09/25 15:23 Blood - Venous Blood Culture - Preliminary No growth after 24 hours. 02/09/25 15:23 Blood - Venous Blood Culture - Preliminary No growth after 24 hours. Assessment and Plan (1) MRSA (methicillin resistant staph aureus) culture positive: Status: Acute (2) Abscess of skin and subcutaneous tissue: Qualifiers: Site of cutaneous abscess: extremity Site of cutaneous abscess of extremity: lower extremity Laterality: right Qualified Code(s): L02.415 - Cutaneous abscess of right lower limb Status: Acute Plan This is probably MRSA skin infection but concern still remains about pyoderma gangrenosum and diabetica lipoidica necrobiosis due to unusual beefy nature and rapidly spreading borders Would give po linezolid 600 mg bid for 10 days as outpatient and if not better see Dermatology,not Wound Care as may need intralesional steroids or other specialty care.
== END 2025-02-11 13:09 | disposition home or self-care (01) ==
LOC: HO.ED 14:49 → HO.EDOVER 15:40 → HO.S3 16:35
PROVIDERS: Registered Nurse Emergency; Admitting Provider Physician Assistant Medical; Emergency Provider Emergency Medicine; PCP Nurse Practitioner Family; Visit Provider Internal Medicine
DX: A49.02 Methicillin resistant Staphylococcus aureus infection, unspecified site (principal); L03.115 Cellulitis of right lower limb; E13.69 Other specified diabetes mellitus with other specified complication; L02.415 Cutaneous abscess of right lower limb; Z23 Encounter for immunization
CPT/HCPCS: 10060; 36415; 76882; 80048; 80053; 82947; 83036; 85025; 85652; 86140; 87040; 87070; 87077; 87186; 87205; 90471; 90715; 96361; 96365; 96366; 96367; 96372; 99221; 99285; J1650; J2003; J2020; J2543; J3373; J7120

== ENCOUNTER 2025-02-09 15:33 | Outpatient (BNV) | payer BC, SELFPAY | END 2025-02-09 17:58 | PROVIDERS: Admitting Provider Physician Assistant Medical; Emergency Provider Emergency Medicine; PCP Nurse Practitioner Family; Visit Provider Radiology Diagnostic Radiology | DX: L02.415 Cutaneous abscess of right lower limb (principal) | CPT/HCPCS: 76882 ==

== ENCOUNTER → 2025-02-09 15:33 | Outpatient (BNV) | payer BC, SELFPAY | PROVIDERS: Admitting Provider Physician Assistant Medical; Emergency Provider Emergency Medicine; PCP Nurse Practitioner Family; Visit Provider Internal Medicine | DX: Z22.322 Carrier or suspected carrier of Methicillin resistant Staphylococcus aureus (principal); L02.415 Cutaneous abscess of right lower limb | CPT/HCPCS: 99253 ==

== ENCOUNTER → 2025-02-09 15:33 | Outpatient (BNV) | payer BC, SELFPAY | PROVIDERS: Admitting Provider Physician Assistant Medical; Emergency Provider Emergency Medicine; PCP Nurse Practitioner Family; Visit Provider Internal Medicine | DX: L03.119 Cellulitis of unspecified part of limb (principal); L02.419 Cutaneous abscess of limb, unspecified | CPT/HCPCS: 99222; 99232; 99239 ==

== ENCOUNTER → 2025-02-09 15:33 | Outpatient (BNV) | payer BC, SELFPAY | PROVIDERS: Admitting Provider Physician Assistant Medical; Emergency Provider Emergency Medicine; PCP Nurse Practitioner Family; Visit Provider Surgery | DX: L03.119 Cellulitis of unspecified part of limb (principal); L02.419 Cutaneous abscess of limb, unspecified | CPT/HCPCS: 99254 ==

== ENCOUNTER → 2025-02-14 12:05 | Outpatient (AMB) | payer BC, SELFPAY ==
--- NOTE | 2025-02-14 11:30 | A.OFFPC_ITS ---
Vital Signs 02/14/25 12:16 Height 5 ft 6 in Weight 189 lb BMI 30.5 BP 108/70 Blood Pressure Location Lt brachial Position Sitting Pulse 68 Pulse Source Pulse Oximeter Temp 97.8 F Temp Source Oral Pulse Oximetry (%) 97 Intake Visit Reasons: [facility] Inside Channel Account Manager Required: No Allergies lisinopril Allergy (Mild, Verified 02/14/25 12:17) Weakness vancomycin Allergy (Mild, Verified 02/14/25 12:17) Itching metformin Adverse Reaction (Mild, Verified 02/14/25 12:17) Dizziness Tobacco use date assessed: 05/17/24 Dental Screening Dental Screen Date: 05/17/24 HPI HPI Comments History of Present Illness Details Patient is a 39-year-old female with a past medical history of DM2 who is here for a hospital discharge follow-up. On February 04, she came to the [facility] walk-in for an abscess on her posterior right thigh, she was started on Bactrim. Two days later she came back to the walk-in clinic because her abscess seemed to be getting worse. Her antibiotics were then changed to amoxicillin and doxycycline. On February 09 she went to the [facility] emergency department stating that the abscess is getting worse and she was starting to have chills. In the emergency department labs were remarkable for a CRP of 3.2 an ESR of 33 she was started on vanco and Zosyn and admitted for failed p.o. antibiotics. Surgery was consulted and advised no acute surgical intervention. Her wound culture grew MRSA and she was switched to linezolid. Ultrasound revealed a small loculated pocket of fluid with the edema, likely an abscess. The abscess and cellulitis improved and her vital signs were stable so she was discharged on February 11 with 1 week of linezolid 600 mg p.o. twice daily and dressing changes every other day. Today, she states she has on day 3 of the linezolid, she is taking it as prescribed. She says the area does not seem to be getting better in her opinion. She denies any fevers. She does have a follow up appointment with General surgery scheduled on February 19. 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 [facility] Medical History (Updated 02/14/25 @ 12:54 by Francy Hernandez PA-C) Abscess of skin and subcutaneous tissue Elevated sed rate Elevated C-reactive protein (CRP) Arthralgia Generalized body aches Surgical History Hx of cholecystectomy Family History Mother Arthritis Diabetes Vascular abnormality Social History Household Members: Significant Other and Children Housing: Apartment Do you presently have visiting nurse or other home services: No Alcohol intake: current Alcohol intake frequency: holidays/special occasions only Patient Tobacco Use Status: Never used Tobacco e-Cigarette/Vaping Use: Never Used service: No Current occupational status: employed Cognitive needs: No Hearing needs: No Vision needs: No Questionnaire Thrive Questionnaire Date Thrive assessed: 05/17/24 I am a: Patient What is your living situation today?: I have a steady place to live Within the past 12 months, did the food you bought not last and you didn't have the money to get more?: Never true Within the past 12 months, did you worry whether your food would run out before you got money to buy more?: Never true Do you have trouble paying for medicines?: No Do you have trouble getting transportation to medical appointments?: No Do you have trouble paying your heating and electricity bill?: No Do you have trouble taking care of your child, family member or friend?: No Do you have trouble with day-to-day activities such as bathing, preparing meals, shopping, managing finances, etc.?: No Are you currently unemployed and looking for a job?: No Are you interested in more education?: No Please select the resources that you would like help with: None Currently or been in a relationship where the following occur: No concerns reported THRIVE Score: 0 AUDIT C Alcohol Use Questionnaire (AUDIT-C) 3. How often do you have six or more drinks on one occasion?: Never Total Score: 0 MARCO A-7 AMB Questionnaire MARCO A-7 Date MARCO A - 7 assessed: 05/17/24 Source: Developed by Drs. Vishal Cason, Maureen Kwon, Isreal Bruce and colleagues, with an educational kristine from [email or web address]. Review of Systems Const All systems reviewed & are unremarkable except as noted in HPI and below Physical exam (Primary Care) Vital Signs: Last Vital Signs Temp 97.8 F 02/14/25 12:16 Pulse 68 02/14/25 12:16 BP 108/70 02/14/25 12:16 Pulse Ox 97 02/14/25 12:16 BMI result Body Mass Index 30.5 Tobacco/Smoking Status: Tobacco use Status Tobacco use date assessed 05/17/24 02/14/25 11:31 Patient Tobacco Use Status Never used Tobacco 02/14/25 11:31 e-Cigarette/Vaping Use Never Used 02/14/25 11:31 Thrive Assessment: Date of Thrive Assessment Date Thrive assessed 05/17/24 02/14/25 11:31 Currently or been in a relationship where the following occur: No concerns reported Const General: cooperative, healthy appearing, comfortable, no acute distress and well developed Orientation/consciousness: patient oriented x3 Limitations: no limitations HENMT Head: Yes normal to inspection Eyes General: appearance normal, both eyes and all related structures Neck Neck: Yes normal visual inspection and Yes full ROM Resp Effort & Inspection: normal respiratory effort and able to speak in complete sentences Skin Other: Right posterior leg with 2cm round area of induration, erythema, with purulent exudate on dressing. Neuro General: patient oriented x3 Extrem General: Yes normal to inspection Coding Level of Care Code Est Pt Level 4 (37602) Diagnoses Hospital discharge follow-up Z09 Cellulitis and abscess of leg L03.119; L02.419 MRSA (methicillin resistant staph aureus) culture positive Z22.322 Assessment & Plan Assessment & Plan (1) Hospital discharge follow-up: Code(s): Z09 - Encounter for follow-up examination after completed treatment for conditions other than malignant neoplasm Category: Medical Plan: - The cellulitis and abscess appears to be improving from when I saw it on February 06, patient is on day 3 of linezolid, continue linezolid for the 10 day course. - Follow up with General surgery, as scheduled on February 19 - I have sent a referral to dermatology, ideal follow up for post abx which would be 02/21 - Sent 3 more days of Linezolid to pts pharmacy as ID recommendation was 10 days but patient was only discharged with 7 days of medication. - If you develop an increased heart rate over 100BPM or a fever refill the wound is getting worse, please go to the emergency department. - Wrote work note so pt does not have any direct patient care until 02/18/25, as per ID Dr Christa Longoria, she is fine to have direct patient care as long as wound is covered as of today. (2) Cellulitis and abscess of leg: Code(s): L03.119 - Cellulitis of unspecified part of limb; L02.419 - Cutaneous abscess of limb, unspecified Category: Medical Plan: as above (3) MRSA (methicillin resistant staph aureus) culture positive: Code(s): Z22.322 - Carrier or suspected carrier of Methicillin resistant Staphylococcus aureus Category: Medical Plan: as above Orders: Referrals Dermatology Referral L02.419 - Cutaneous abscess of limb, unspecified, L03.119 - Cellulitis of unspecified part of limb, Z22.322 - Carrier or suspected carrier of Methicillin resistant Staphylococcus aureus Medications: New linezolid 600 mg PO Q12H 6 tabs 0RF
[2025-02-14 12:16] VITALS: BP 108/70; PULSE 68; TEMP 36.6; O2SAT 97; BMI 30.5
--- OUTSIDE RECORDS SUMMARY | 2025-02-14 14:08 | XMS_ITS | Clinical Summary ---
Author Organization [facility] Address [address] [place] [id number] Phone Care Team Providers Care Senior Resident Care Director Name Role Phone Unavailable Primary Care Provider [...]
--- OUTSIDE RECORDS SUMMARY | 2025-02-14 14:08 | XMS_ITS | Encounter Summary ---
Author Organization [facility] Address [address] [place] [id number] Phone Care Team Providers Care User Support Analyst Name Role Phone Shasta Holder MD Primary Care Provider [phone] Encounter Details Date Type Department Care Team (Late st Contact Info) Description 12/09/2016 Conversion Encounter [facility] [address] [id number] Social History Tobacco Use Types Packs/Day Years [...] on filedocumented in this encounter Care Teams User Support Analyst Relationship Specialty Start Date End Date Shasta Holder MD [address] [place] [address] PCP - General 12/03/16 10/04/22 documented as of this encounter
== END ==
PROVIDERS: PCP Nurse Practitioner Family; Visit Provider Physician Assistant
DX: Z09 Encounter for follow-up examination after completed treatment for conditions other than malignant neoplasm (principal); L03.119 Cellulitis of unspecified part of limb; L02.419 Cutaneous abscess of limb, unspecified; Z22.322 Carrier or suspected carrier of Methicillin resistant Staphylococcus aureus

== ENCOUNTER 2025-02-19 11:04 | Outpatient (AMB) | payer BC, SELFPAY ==
--- NOTE | 2025-02-19 11:07 | MHC.OFFVIS ---
Vital Signs 02/19/25 11:19 Height 5 ft 6 in Weight 184 lb BMI 29.7 BP 109/56 L Blood Pressure Location Rt brachial Position Sitting Pulse 77 Intake Visit Reasons: abscess skin thigh (insect bite) did have I&D Intake Note: Patient seen at [facility] ED for abscess on Rt post thigh. Here today s/p I&D. On Linezolid, has 2more days of txt. Patient c/o: tender to touch, oozing. States bandage supplied, irritates the surroing skin. Guide Escort Required: No Accompanied by: Self / Same As Patient Allergies lisinopril Allergy (Mild, Verified 02/19/25 11:19) Weakness vancomycin Allergy (Mild, Verified 02/19/25 11:19) Itching metformin Adverse Reaction (Mild, Verified 02/19/25 11:19) Dizziness HPI HPI abscess skin thigh (insect bite) did have I&D: Details: Doing okay, still has some mild pain at the site is unsure if it looks better or worse. She reports she continues to take linezolid has 2 days left. She states she has been continuing dressing changes every other day as recommended by previous provider. She reports some small amounts of discharge from the area and some localized skin discoloration, is worried that cellulitis remains. Denies fevers at home. She will be seeing supervisor travel information center tomorrow states they may take a biopsy of the area if they are concerned. FORMERLY [facility], [facility] Medical History (Updated 02/14/25 @ 12:54 by Francy Hernandez PA-C) Abscess of skin and subcutaneous tissue Elevated sed rate Elevated C-reactive protein (CRP) Arthralgia Generalized body aches Surgical History Hx of cholecystectomy Family History Mother Arthritis Diabetes Vascular abnormality Social History Household Members: Significant Other and Children Housing: Apartment Do you presently have visiting nurse or other home services: No Alcohol intake: current Alcohol intake frequency: holidays/special occasions only Patient Tobacco Use Status: Never used Tobacco e-Cigarette/Vaping Use: Never Used service: No Current occupational status: employed Cognitive needs: No Hearing needs: No Vision needs: No Physical Exam Vital Signs: Last Vital Signs Pulse 77 02/19/25 11:19 BP 109/56 L 02/19/25 11:19 BMI result Body Mass Index 29.7 Skin Full body images:  1. 3.5 x 2 cm superficial wound on the posterior aspect of the right thigh with mild surrounding induration likely secondary to recent cellulitis. No palpable fluid collection no erythema noted. Mildly tender to palpation. There is a thin layer of slough on the wound today gently debrided with gauze. The wound border appears to be healthy granulation tissue. Assessment & Plan Assessment & Plan (1) Cellulitis and abscess of leg: Code(s): L03.119 - Cellulitis of unspecified part of limb; L02.419 - Cutaneous abscess of limb, unspecified Category: Medical Plan 39-year-old female returning to the office following admission for right posterior leg abscess following a possible insect bite. Overall the site is improving, has some mild pain. There has been small amounts of drainage on the dressing when she changing. She changes every day. Denies fevers or chills at home. She is continuing to take the linezolid for a total of 10 days. This is appropriate, covers MRSA. On exam the area does appear to be improving, the localized cellulitis seems improved at this point. There was no obvious fluid collection, there was some mild slough on the wound that was gently debrided with gauze in the office today there was good granulation tissue on the wound bed. There is mildly tender to palpation. I dress this with dural fiber, gauze, Tegaderm. She should continue to changes daily, dural fiber will likely help with some mechanical debridement of the slough. I instructed her to use a gauze to remove some of this tissue when she changes the dressings. Additionally should keep this clean and dry. She is seeing a supervisor travel information center tomorrow to further evaluate this for any additional recommendations. States they mentioned they may take a biopsy if the area isn't improving. Would like to see her back in 1-2 weeks. She can call to be seen sooner with any concerns or questions Coding Level of Care Code Est Pt Level 4 (02324) Diagnoses Cellulitis and abscess of leg L03.119; L02.419
[2025-02-19 11:19] VITALS: BP 109/56; PULSE 77; BMI 29.7
--- OUTSIDE RECORDS SUMMARY | 2025-02-19 14:18 | XMS_ITS | Encounter Summary ---
Author Organization [facility] Address [address] [place] [address] Phone Care Team Providers Care Photoengraving Proofer Name Role Phone Shasta Holder MD Primary Care Provider [phone] Encounter Details Date Type Department Care Team (Late st Contact Info) Description 12/09/2016 Conversion Encounter [facility] [address] [address] Social History Tobacco Use Types Packs/Day Years [...] on filedocumented in this encounter Care Teams Photoengraving Proofer Relationship Specialty Start Date End Date Shasta Holder MD [address] [place] [address] PCP - General 12/03/16 10/04/22 documented as of this encounter
--- OUTSIDE RECORDS SUMMARY | 2025-02-19 14:18 | XMS_ITS | Clinical Summary ---
Author Organization [facility] Address [address] [place] [address] Phone Care Team Providers Care Insulation Professional Name Role Phone Unavailable Primary Care Provider [...]
== END 2025-02-19 11:36 | disposition home or self-care (01) ==
LOC: HO.HGS 11:06
PROVIDERS: PCP Nurse Practitioner Family
DX: L03.119 Cellulitis of unspecified part of limb (principal); L02.419 Cutaneous abscess of limb, unspecified
CPT/HCPCS: 99214

== ENCOUNTER 2025-02-27 12:12 | Outpatient (AMB) | payer BC, SELFPAY ==
--- NOTE | 2025-02-27 12:22 | A.OFFVIS_ITS ---
Vital Signs 3 02/27/25 12:29 Height 5 ft 6 in Weight 182 lb BMI 29.4 BP 117/62 Blood Pressure Location Rt brachial Position Sitting Pulse 70 Intake Visit Reasons: abscess skin thigh (insect bite) wound check Intake Note: Patient here for 1wk follow up from last office visit 02-19-2025. S/p I&D abscess on Rt post thigh. Completed Linezolid. Patient c/o: area feels moist, wet. Keeping site covered w/gauze. Was prescribed Muirocin by teradata developer. Reports mild improvement since last visit. Civil Litigation Attorney Required: No Accompanied by: Self / Same As Patient Allergies lisinopril Allergy (Mild, Verified 02/27/25 12:30) Weakness vancomycin Allergy (Mild, Verified 02/27/25 12:30) Itching metformin Adverse Reaction (Mild, Verified 02/27/25 12:30) Dizziness HPI HPI abscess skin thigh (insect bite) wound check: Details: She is doing okay however wound is very slow to heal. She thinks this is likely due to her diabetes. States her sugars have been well controlled lately. She did see Dermatology who thought the wound was stable, gave her mupirocin ointment to use topically. She has been keeping this covered states the area often feels wet but denies any drainage. Pain is much improved from last time. The area is not as swollen. Denies fevers or chills FOR[facility]LY [facility] Medical History (Updated 02/14/25 @ 12:54 by Francy Hernandez PA-C) Abscess of skin and subcutaneous tissue Elevated sed rate Elevated C-reactive protein (CRP) Arthralgia Generalized body aches Surgical History Hx of cholecystectomy Family History Mother Arthritis Diabetes Vascular abnormality Social History Household Members: Significant Other and Children Housing: Apartment Do you presently have visiting nurse or other home services: No Alcohol intake: current Alcohol intake frequency: holidays/special occasions only Patient Tobacco Use Status: Never used Tobacco e-Cigarette/Vaping Use: Never Used service: No Current occupational status: employed Cognitive needs: No Hearing needs: No Vision needs: No Physical Exam Vital Signs: Last Vital Signs Pulse 70 02/27/25 12:29 BP 117/62 02/27/25 12:29 BMI result Body Mass Index 29.4 Const General: comfortable and no acute distress Orientation/consciousness: patient oriented x3 Resp Effort & Inspection: normal respiratory effort and able to speak in complete sentences Skin Other: Right posterior thigh. 2 x 1.5 cm superficial wound. Slough covering the majority of the wound, good granulation tissue in the wound borders. No fluctuance, mildly tender to palpation Mild induration Full body images: 2 1. Wound as above Neuro General: patient oriented x3 Assessment & Plan Assessment & Plan (1) Cellulitis and abscess of leg: Code(s): L03.119 - Cellulitis of unspecified part of limb; L02.419 - Cutaneous abscess of limb, unspecified Category: Medical Plan 39-year-old female returning to the office for wound check of right posterior leg abscess following a possible insect bite. Overall the site is improving, minimal pain unless to palpation. She has been continuing with dressing changes at home using Dura fiber and gauze. States that it is often wet but denies any drainage. Has been keeping this covered almost 15/11. She did see a teradata developer who thought the wound was stable and prescribed mupirocin ointment as a topical antibiotic. She has been using this as prescribed. Denies fevers or chills at home. The area does look improved from last visit. There remains a 2 x 1.5 cm superficial wound with moderate slough covering the wound. I gently debrided this with gauze and normal saline. There was no obvious fluid collection. there is good granulation tissue on the wound bed. There is mildly tenderness to palpation. I dress this with dura fiber, gauze, Tegaderm. She should continue to changes daily, dural fiber will likely help with some mechanical debridement of the slough. I did recommend that she would leave this open to air for an hour or 2 before bed each day. I instructed her to use a gauze to remove some of this slough tissue when she changes the dressings. Additionally should keep this clean and dry. She can continue with mupirocin as prescribed from teradata developer. Would like to see her back in 2 weeks. She can call to be seen sooner with any concerns or questions Coding Level of Care Code Est Pt Level 3 (64661) Diagnoses Cellulitis and abscess of leg L03.119; L02.419
[2025-02-27 12:29] VITALS: BP 117/62; PULSE 70; BMI 29.4
--- OUTSIDE RECORDS SUMMARY | 2025-02-27 14:53 | XMS_ITS | Encounter Summary ---
Author Organization [facility] Address [address] [place] [address] Phone Care Team Providers Care Crap Shooter Name Role Phone Shasta Holder MD Primary Care Provider [phone] Encounter Details Date Type Department Care Team (Late st Contact Info) Description 12/09/2016 Conversion Encounter [facility] [address] [address] Social History Tobacco Use Types Packs/Day Years [...] on filedocumented in this encounter Care Teams Crap Shooter Relationship Specialty Start Date End Date Shasta Holder MD [address] [place] [address] PCP - General 12/03/16 10/04/22 documented as of this encounter
--- OUTSIDE RECORDS SUMMARY | 2025-02-27 14:53 | XMS_ITS | Clinical Summary ---
Author Organization [facility] Address [address] [place] [address] Phone Care Team Providers Care Drop Forge Operator Name Role Phone Unavailable Primary Care [...]
== END 2025-02-27 13:01 | disposition home or self-care (01) ==
LOC: HO.HGS 12:14
PROVIDERS: PCP Nurse Practitioner Family
DX: L03.119 Cellulitis of unspecified part of limb (principal); L02.419 Cutaneous abscess of limb, unspecified
CPT/HCPCS: 99213

== ENCOUNTER 2025-03-20 15:16 | Outpatient (AMB) | payer BC, SELFPAY ==
--- NOTE | 2025-03-20 15:18 | A.OFFPC_ITS ---
Vital Signs 03/20/25 15:19 Height 5 ft 6 in Weight 180 lb BMI 29.0 BP 102/60 Blood Pressure Location Lt brachial Position Sitting Respiration 16 Pulse 69 Pulse Source Pulse Oximeter Pulse Oximetry (%) 98 Oxygen Delivery Method Room Air Intake Visit Reasons: 6m f/u-Reschedule Securities Trader Required: No Accompanied by: Self / Same As Patient Allergies lisinopril Allergy (Mild, Verified 03/20/25 16:11) Weakness vancomycin Allergy (Mild, Verified 03/20/25 16:11) Itching metformin Adverse Reaction (Mild, Verified 03/20/25 16:11) Dizziness Medication List - Last Reconciled 03/20/25 by ALTON Ramos-KALYANI atorvastatin 10 mg PO BEDTIME blood sugar diagnostic (OneTouch Verio test strips) test blood sugar once a day blood sugar diagnostic (Accu-Chek Guide test strips) Test blood sugar twice a day blood-glucose meter (OneTouch Verio Flex Meter) As directed blood-glucose meter (Accu-Chek Guide Glucose Meter) As directed lancets (OneTouch Delica Plus Lancet) Test blood sugar once a day lancets (Accu-Chek Softclix Lancets) Test blood sugar twice a day tirzepatide 5 mg (0.5 mL) subcut QWEEK Tobacco use date assessed: 03/20/25 Dental Screening Dental Screen Date: 03/20/25 Did you have a dental visit in the last 12 months?: No Did you have a dental problem in the last 6 months where you did not have access to dental care?: No Was dental information given to patient?: Patient has dentist HPI 6m f/u-Reschedule HPI Details Chief Complaint The patient presents for a follow-up visit for diabetes management. History of Present Illness The patient is a 39 year old individual presenting for a follow-up visit for diabetes. The patient's HbA1c is 5.1 while on a GLP-1 agonist, and the patient reports doing well on this regimen, denying any nausea or vomiting. The patient reports active weight loss and denies any symptoms of neuropathy. Past medical history is notable for obesity and slight anemia. 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 The patient has already received the flu vaccination and will follow up with an account adjuster for an eye exam. Social History - Employment: The patient works in the [employer] as a clinical coordinator. - Psychosocial: Reports work-related str ess and anxiety. - Weight Management: The patient is acti vely losing weight. Health Maintenance The patient has received a flu vaccination and declined the pneumonia vaccination today. Review of Systems - GI: Denies nausea and vomiting. - Psychiatric: Reports stress and anxiet y. - Neurological: Denies neuropathy. Physical Exam General: Cooperative, healthy appearing, comfortable, no acute distress and well developed Orientation: Patient oriented x3 Limitations: No limitations Head: Normal to inspection Ears: Hearing grossly normal bilaterally Nose: Normal external nose present Face and sinus: Normal facial exam Eyes: Appearance normal, both eyes and all related structures Neck: Normal visual inspection and Yes full ROM Respiratory: Normal respiratory effort and able to speak in complete sentences. Clear to auscultation bilaterally Cardiovascular: Regular rate and rhythm. Normal S1 and S2 GI: Normal to inspection. Soft to palpation and nontender Skin: No rashes or lesions noted Neuro: Patient oriented x3 Extremities: Normal to inspection, positive sensation with use of monofilament, feet were intact Results - Labs: HbA1c is 5.1. - Labs: Past labs have shown slight anem ia. Plan 1. Diabetes Mellitus The patient's diabetes is well-controlled with an HbA1c of 5.1 on a GLP-1 agonist, which is being tolerated well without side effects. The patient is actively losing weight. The patient will follow up with an account adjuster for a diabetic eye exam. 2. Anemia The patient was noted to be slightly anemic. Repeat labs will be ordered in two months to monitor this. 3. Anxiety And Stress The patient reports work-related stress and anxiety, which the patient is currently managing. No new interventions were discussed at this time. Discussion Notes I reviewed the patient's excellent diabetes control, with an HbA1c of 5.1 on a GLP-1 agonist, which is being well-tolerated. We discussed the associated active weight loss. I informed the patient about the slight anemia and my plan to repeat labs in two months. The patient acknowledged the plan to follow up with an account adjuster for a routine eye exam. We noted the patient's recent flu vaccination and declination of the pneumonia vaccine today. Patient Instructions - Continue to take your diabetes medicat ion as prescribed. It is working very well for you. - Please schedule an appointment with [facility] eye doctor for a routine diabetic eye exam. - You will need to have blood work done again in two months to recheck your slight anemia. - You have received your flu shot. You d eclined the pneumonia shot today. FOR[facility]LY [facility] Medical History Abscess of skin and subcutaneous tissue Elevated sed rate Elevated C-reactive protein (CRP) Arthralgia Generalized body aches Surgical History Hx of cholecystectomy Family History Mother Arthritis Diabetes Vascular abnormality Social History Household Members: Significant Other and Children Housing: Apartment Do you presently have visiting nurse or other home services: No Alcohol intake: current Alcohol intake frequency: holidays/special occasions only Patient Tobacco Use Status: Never used Tobacco e-Cigarette/Vaping Use: Never Used service: No Current occupational status: employed Cognitive needs: No Hearing needs: No Vision needs: No Questionnaire Thrive Questionnaire Date Thrive assessed: 05/17/24 I am a: Patient What is your living situation today?: I have a steady place to live Within the past 12 months, did the food you bought not last and you didn't have the money to get more?: Never true Within the past 12 months, did you worry whether your food would run out before you got money to buy more?: Never true Do you have trouble paying for medicines?: No Do you have trouble getting transportation to medical appointments?: No Do you have trouble paying your heating and electricity bill?: No Do you have trouble taking care of your child, family member or friend?: No Do you have trouble with day-to-day activities such as bathing, preparing meals, shopping, managing finances, etc.?: No Are you currently unemployed and looking for a job?: No Are you interested in more education?: No Please select the resources that you would like help with: None Currently or been in a relationship where the following occur: No concerns reported THRIVE Score: 0 MARCO A-7 AMB Questionnaire MARCO A-7 Date MARCO A - 7 assessed: 05/17/24 Source: Developed by Drs. Vishal Cason, Maureen Kwon, Isreal Bruce and colleagues, with an educational kristine from [employer]. Physical exam (Primary Care) Vital Signs: Last Vital Signs Pulse 69 03/20/25 15:19 Resp 16 03/20/25 15:19 BP 102/60 03/20/25 15:19 Pulse Ox 98 03/20/25 15:19 Oxygen Delivery Method Room Air 03/20/25 15:19 BMI result Body Mass Index 29.0 Tobacco/Smoking Status: Tobacco use Status Tobacco use date assessed 03/20/25 03/20/25 15:27 Patient Tobacco Use Status Never used Tobacco 03/20/25 15:27 e-Cigarette/Vaping Use Never Used 03/20/25 15:27 Thrive Assessment: Date of Thrive Assessment Date Thrive assessed 05/17/24 03/20/25 15:27 Currently or been in a relationship where the following occur: No concerns reported Results AMB Hemoglobin A1c AMB Hemoglobin A1c 5.1 % Last Edit by Janett Berger MA on 03/20/25 15:42 Results Reviewed Results Reviewed: Laboratory Last Values Hgb A1c (Clinic) 5.1 % (4.0-6.0) 03/20/25 15:41 Coding Level of Care Code Est Pt Level 3 (53982) Diagnoses Other specified diabetes mellitus with other specified complication, without long-term current use of insulin E13.69 Diabetes mellitus type: other specified (including SONNY) Diabetes mellitus intermission coordinator insulin use: without intermission coordinator use Diabetes mellitus complication status: with other specified complication Assessment & Plan Assessment & Plan (1) Diabetes: Code(s): E11.9 - Type 2 diabetes mellitus without complications Category: Medical Qualifiers: Diabetes mellitus type: other specified (including SONNY) Diabetes mellitus intermission coordinator insulin use: without intermission coordinator use Diabetes mellitus complication status: with other specified complication Qualified Code(s): E13.69 - Other specified diabetes mellitus with other specified complication Plan . Orders: Orders Complete Blood Count Auto Diff 2 Months E13.69 - Other specified diabetes mellitus with other specified complication UA CC w/rflx Micro + Cult 2 Months E13.69 - Other specified diabetes mellitus with other specified complication AMB Hemoglobin A1c Today E13.69 - Other specified diabetes mellitus with other specified complication, R73.03 - Prediabetes Comprehensive Rewey. Panel Fast 2 Months E13.69 - Other specified diabetes mellitus with other specified complication TSH reflex Free T4 2 Months E13.69 - Other specified diabetes mellitus with other specified complication Lipid Panel 2 Months E13.69 - Other specified diabetes mellitus with other specified complication
[2025-03-20 15:19] VITALS: BP 102/60; PULSE 69; RESP 16; O2SAT 98; BMI 29.0
--- OUTSIDE RECORDS SUMMARY | 2025-03-20 17:42 | XMS_ITS | Clinical Summary ---
Author Organization [facility] Address [address] [place] [address] Phone Care Team Providers Care Grain Packer Name Role Phone Unavailable Primary Care Provider [...]
--- OUTSIDE RECORDS SUMMARY | 2025-03-20 17:43 | XMS_ITS | Encounter Summary ---
Author Organization [facility] Address [address] [place] [address] Phone Care Team Providers Care Health Services Manager Name Role Phone Shasta Holder MD Primary Care Provider [phone] Encounter Details Date Type Department Care Team (Late st Contact Info) Description 12/09/2016 Conversion Encounter [facility] [address] [address] Social History Tobacco Use Types Packs/Day Years [...] on filedocumented in this encounter Care Teams Health Services Manager Relationship Specialty Start Date End Date Shasta Holder MD [address] [place] [address] PCP - General 12/03/16 10/04/22 documented as of this encounter
== END 2025-03-20 16:14 | disposition home or self-care (01) ==
LOC: HO.HMCC 15:17
PROVIDERS: PCP Nurse Practitioner Family; Visit Provider Nurse Practitioner Family
DX: E13.69 Other specified diabetes mellitus with other specified complication (principal); R73.03 Prediabetes

== ENCOUNTER → 2025-03-20 15:16 | Outpatient (BNVA) | payer BC, SELFPAY | PROVIDERS: PCP Nurse Practitioner Family; Visit Provider Nurse Practitioner Family | DX: E13.69 Other specified diabetes mellitus with other specified complication (principal); Z79.4 Long term (current) use of insulin | CPT/HCPCS: 83036 ==